=== PATIENT | female | born 1940 | race Caucasian/White ===

== ENCOUNTER 2020-06-16 08:32 | Emergency (ER) | payer MEDICARE, SELFPAY ==
[2020-06-16 08:37] VITALS: BP 156/104; PULSE 85; TEMP 36.6; O2SAT 99
--- NOTE | 2020-06-16 08:51 | ED.GENADUL_ITS ---
Discharge Plan Disposition Patient Disposition: HOME Condition: Stable Discharge Details Chief Complaint: Laceration Clinical Impression: Laceration of thumb Primary Care Provider: Luigi Rodarte ED Provider: Zackery Bowman Home Meds and New Rx's Prescriptions: Continued melatonin 3 MG tablet 5 mg PO HS Qty: 2 RF: 0 ascorbic acid (vitamin C) [Vitamin C] 500 MG tablet 500 mg PO DAILY RF: 0 d-mannose (bulk) 1 GM powder 1 packet PO DAILY RF: 0 Discharge Instructions Instructions: Laceration (ED) Additional Instructions: Tetanus updated. X-ray and splint deferred today. Keep the area clean and dry, change antibiotic dressing daily. Please watch for new or worsening symptoms and return to the ER for any concerns. Sutures removed in approximately 10 days. Medical Decision Making 79-year-old female who is left-hand dominant presents with a right hand laceration. She is unsure of her tetanus status, looking at her records her previous was 2011, will update today. She declines any x-rays. She understands the risks of retained foreign body or potential bony involvement. She also does not want any local anesthetic, she prefer that the laceration be repaired just the way it is. Tetanus updated. Laceration repaired without difficulty, please see procedural note. Patient agreeable to a antibiotic dressing, declined splint. HPI General Mode of arrival: ambulatory . Date/Time Provider Initiated Documentation: 06/16/20 08:33 . Limitations to Documentation: no limitations . Information obtained by: patient . HPI Narrative: This is a 79-year-old female who is left-hand dominant, history of A. fib, reporting a laceration to her right thumb. She reached into her garbage and accidentally cut herself on a piece of glass. She saw the piece of glass, it was clean, she does not believe there is a foreign body. She denies any other injury. She denies numbness, tingling, weakness. She is unsure of her last tetanus shot. Reports the pain is mild in nature. Related Data Home Medications Medication Instructions Recorded Confirmed melatonin 5 mg PO HS #2 09/28/14 06/16/20 ascorbic acid (vitamin C) [Vitamin 500 mg PO DAILY 02/07/17 06/16/20 C] d-mannose (bulk) 1 packet PO DAILY 02/07/17 06/16/20 Allergies Allergy/AdvReac Type Severity Reaction Status Date / Time No Known Allergies Allergy Unverified 06/16/20 08:40 General Stated Complaint: Laceration [place]: 4 Review of Systems Constitutional Constitutional: Denies weakness Musculoskeletal Musculoskeletal: Denies numbness and Denies tingling Integumentary/Breasts Skin/Breast: Denies erythema Neurologic Neurologic: Denies numbness, Denies tingling and Denies weakness [facility] Social History Smoking/Tobacco Use Status: Never Alcohol Intake: current Alcohol Intake frequency: holidays/special occasions only Drug use: Never Substance use type: does not use Do you feel safe at home: Yes Do you feel safe in your relationship?: Yes Exam Const General: cooperative, healthy appearing, comfortable and no acute distress Orientation: alert and awake HENMT Head: normal to inspection, normocephalic and atraumatic Mouth: moist mucous membranes Eyes Conjunctivae: conjunctivae normal Neck Neck: normal visual inspection, trachea midline and supple Resp Effort & Inspection: normal respiratory effort and able to speak in complete sentences Cardio Rate: regular rate Rhythm: regular rhythm Skin General skin exam: no rashes or lesions noted Neuro General: patient alert, patient awake, moves all extremities and no focal motor deficits Sensory Exam: no sensory deficits noted Extrem Hand/finger images: 1. 2 cm laceration. No obvious foreign body. Neuro, vascular, tendon intact. Was able to explore the wound, deep structures appear to be intact. No active bleeding. Full range of motion. Psych Appearance: grossly normal Mental Status: mental status grossly normal Course Vital Signs Vital signs: Vital Signs Temperature 36.6 C 06/16/20 08:37 Pulse 85 06/16/20 08:37 Blood Pressure 156/104 H 06/16/20 08:37 Pulse Oximetry 99 06/16/20 08:37 Temperature 36.6 C 06/16/20 08:37 Temperature Source Temporal Artery Scan 06/16/20 08:37 Pulse 85 06/16/20 08:37 Respiratory Effort Non-Labored 06/16/20 08:41 Blood Pressure 156/104 H 06/16/20 08:37 Blood Pressure Position Sitting 06/16/20 08:37 Pulse Oximetry 99 06/16/20 08:37 Oxygen Delivery Method Room Air 06/16/20 08:37 Oxygen Flow Rate 0 06/16/20 08:37 Pain Level 3 06/16/20 08:37 Procedures Laceration Laceration 1: Site: hand (Thumb) Side (If applicable): right Description: linear Depth: simple, single layer Local Anesthetic: other anesthetic (Patient deferred) Pre-repair: wound explored, irrigated extensively and deep structures intact Skin layer closed with: nylon Size (cm): 4-0 Number of sutures: 4
[2020-06-16 09:20] VITALS: BP 156/104; PULSE 85; TEMP 36.6; O2SAT 99
== END 2020-06-16 09:28 | disposition home or self-care (01) ==
PROVIDERS: Emergency Provider Physician Assistant; PCP Specialist/Technologist Athletic Trainer
DX: S61.011A Laceration without foreign body of right thumb without damage to nail, initial encounter (principal); W25.XXXA Contact with sharp glass, initial encounter
CPT/HCPCS: 12001; 90471

== ENCOUNTER 2020-06-25 10:49 | Emergency (ER) | payer MEDICARE, SELFPAY ==
[2020-06-25 11:16] VITALS: BP 128/104; PULSE 129; RESP 18; TEMP 37.1; O2SAT 97
--- NOTE | 2020-06-25 11:20 | ED.GENADUL_ITS ---
Discharge Plan Disposition Patient Disposition: HOME Condition: Improving Discharge Details Chief Complaint: SutureRem Clinical Impression: Visit for suture removal Primary Care Provider: Luigi Rodarte ED Provider: Tian Rosas Home Meds and New Rx's Prescriptions: Continued melatonin 3 MG tablet 5 mg PO HS Qty: 2 RF: 0 ascorbic acid (vitamin C) [Vitamin C] 500 MG tablet 500 mg PO DAILY RF: 0 d-mannose (bulk) 1 GM powder 1 packet PO DAILY RF: 0 Discharge Instructions Additional Instructions: Resume normal routine and activities. Return for any acute concerns. Medical Decision Making 79-year-old female presents for uneventful suture removal. 4 sutures removed from left thumb and dressing placed. Appropriate for discharge to home. HPI General Mode of arrival: ambulatory . Date/Time Provider Initiated Documentation: 06/25/20 11:04 . Limitations to Documentation: no limitations . Information obtained by: patient . History of Present Illness 79 year old F presents to the emergency department with the chief complaint of Uneventful suture removal, Related Data Home Medications Medication Instructions Recorded Confirmed melatonin 5 mg PO HS #2 09/28/14 06/25/20 ascorbic acid (vitamin C) [Vitamin 500 mg PO DAILY 02/07/17 06/25/20 C] d-mannose (bulk) 1 packet PO DAILY 02/07/17 06/25/20 Allergies Allergy/AdvReac Type Severity Reaction Status Date / Time No Known Allergies Allergy Unverified 06/25/20 11:18 General Stated Complaint: SutureRem [place]: 5 Review of Systems Narrative: No fever or discharge PFSH Social History Smoking/Tobacco Use Status: Never Alcohol Intake: current Alcohol Intake frequency: holidays/special occasions only Drug use: Never Substance use type: does not use Do you feel safe at home: Yes Do you feel safe in your relationship?: Yes Exam Narrative Exam Narrative: Patient is awake alert and oriented x3 in no acute distress. Her exam is unrevealing and she is in no acute distress [address] and healing right thumb laceration Course Vital Signs Vital signs: Vital Signs Temperature 37.1 C 06/25/20 11:16 Pulse 129 H 06/25/20 11:16 Respiratory Rate 18 06/25/20 11:16 Blood Pressure 128/104 H 06/25/20 11:16 Pulse Oximetry 97 06/25/20 11:16 Temperature 37.1 C 06/25/20 11:16 Temperature Source Skin 06/25/20 11:16 Pulse 129 H 06/25/20 11:16 Respiratory Rate 18 06/25/20 11:16 Respiratory Effort Non-Labored 06/25/20 11:16 Blood Pressure 128/104 H 06/25/20 11:16 Pulse Oximetry 97 06/25/20 11:16 Oxygen Delivery Method Room Air 06/25/20 11:16 Oxygen Flow Rate 0 06/25/20 11:16
== END 2020-06-25 11:24 | disposition home or self-care (01) ==
PROVIDERS: Emergency Provider Emergency Medicine; PCP Specialist/Technologist Athletic Trainer
DX: S61.011D Laceration without foreign body of right thumb without damage to nail, subsequent encounter (principal); W25.XXXD Contact with sharp glass, subsequent encounter; Z48.02 Encounter for removal of sutures

== ENCOUNTER 2021-06-25 01:48 | Outpatient (CLI) | payer MEDICARE, SELFPAY ==
--- NOTE | 2021-06-25 06:30 | DI.MAMMO_ITS ---
Exam(s) MAMMO SCREENING EXAM: MAMMO SCREENING CLINICAL HISTORY: screening,z12.39. TECHNIQUE: Bilateral full field digital CC and MLO mammographic images were obtained with 3D tomosyn thesis and utilizing computer aided detection (CAD). COMPARISON: Prior mammograms dating back to 2010, the most recent being July 2014. FINDINGS: Asymmetric density noted anteriorly in the left breast is unchanged from prior studies. In the right breast on CC view there is an asymmetric density-possible nodule slightly medial of cent er, approximately 3.5 cm in from the nipple and measuring approximately 12 by 11 millimeters.. Spot compression view recommended. Also possible ultrasound.. There are no malignant-appearing microcalcification groups in this region nor elsewhere in either larisa ast. There is no significant architectural distortion nor skin thickening-retraction. IMPRESSION: 1. No radiographic evidence of malignancy in left breast. 2. Right breast asymmetric density-possible nodule. Spot compression view and ultrasound recommended . BI-RADS Category 0 - Assessment Incomplete: Need additional imaging evaluation Breast Density - Category C - Heterogeneously dense Breast density Category C or D implies that the patient has dense breast tissue. Dense breast tissue can make it harder to find cancer on a mammogram. Dense breast tissue is also associated with an incr eased risk of breast cancer. This information about the result of the mammogram report was provided to the patient to raise their awareness. Use this report when you speak with the patient about their risks for breast cancer, which includes their family history. At that time, you may recommend additional screening tests (Ultrasoun d or MRI) as these tests may add significant information. A negative radiographic report should not delay biopsy if a dominant or clinically suspicious mass is present. Up to ten percent of cancers are not identified on mammography. A negative report may reinforce clinical impression. Adenosis and dense breasts may obscure an underlying neoplasm. False positive reports average 6 to 10%. Patient will receive a letter notifying them of these results.
== END 2021-06-25 02:08 ==
PROVIDERS: PCP Specialist/Technologist Athletic Trainer; Visit Provider Nurse Practitioner Family
DX: Z12.31 Encounter for screening mammogram for malignant neoplasm of breast (principal); R92.8 Other abnormal and inconclusive findings on diagnostic imaging of breast
CPT/HCPCS: 77063; 77067

== ENCOUNTER 2021-07-13 04:40 | Outpatient (CLI) | payer MEDICARE, SELFPAY ==
--- NOTE | 2021-07-13 | DI.US_ITS ---
Exam(s) US BREAST RT LIMITED EXAM: US BREAST RT LIMITED CLINICAL HISTORY: F/U MAMMO, ASYMMETRIC DENSITY RT, ? NODULE TECHNIQUE: Ultrasound performed using standard protocol. COMPARISON: US Cardiac from 02/10/2017 FINDINGS: Today's ultrasound examination of the breasts was obtained to evaluate questionable nodular radiodens ity seen in medial aspect of the right breast on recent mammogram. The patient refused spot compress ion views of the right breast. Breast ultrasound shows no evidence of a mass or cyst in the medial aspect of the breast from the 12 o'clock to the 6 o'clock position. IMPRESSION: Negative breast ultrasound. Spot compression views of the right breast recommended for further evalu ation. Please note that the patient refused spot compression views today. BI-RADS Cat 0 - Assessment Incomplete: Need additional imaging evaluation DATA REPOSITORY:
== END 2021-07-13 05:00 ==
PROVIDERS: PCP Specialist/Technologist Athletic Trainer; Visit Provider Nurse Practitioner Family
DX: R92.8 Other abnormal and inconclusive findings on diagnostic imaging of breast (principal)
CPT/HCPCS: 76642

== ENCOUNTER 2022-05-27 17:36 | Outpatient (REF) | payer MEDICARE, SELFPAY ==
[2022-05-27 14:29] LABS: Absolute Basophil Count 0.05 10^3/uL (0.0-0.2); Absolute Eosinophil Count 0.05 10^3/uL (0.0-0.7); Absolute Lymphocyte Count 2.31 10^3/uL (1.2-3.4); Absolute Monocyte Count 0.45 10^3/uL (0.1-0.8); Absolute Neutrophil Count 3.07 10^3/uL (1.2-6.7); Basophils % 0.8; Eosinophils % 0.8; HCT 44.5 % (36.0-46.0); HGB 14.5 g/dL (11.2-15.7); MCH 30.9 pg (27.0-33.0); MCHC 32.6 % (32.0-36.0); MCV 95 fL (80-95); MPV 11.7 fL (8.0-11.0); Monocytes % 7.6; Neutrophils % 51.8; Platelet Count 182 10^3/uL (130-400); WBC 5.93 10^3/uL (4.4-10.8)
[2022-05-27 14:48] LABS: ALT 22 U/L (14-59); AST 28 U/L (15-37); Albumin 3.9 g/dL (3.4-5.0); Alkaline Phosphatase 59 U/L (46-116); Anion Gap 5.9 mmol/L (3-11); BUN 26 mg/dL (7-18); CO2 31.1 mmol/L (21.0-32.0); CREATININE 1.3 mg/dL (0.55-1.02); Calcium 9.1 mg/dL (8.5-10.1); Chloride 102 mmol/L (98-107); Estimated GFR 39.41 (mL/min/1.73m2); Glucose 105 mg/dL (74-106); Potassium 4.1 mmol/L (3.5-5.1); Sodium 139 mmol/L (136-145); Total Protein 7.4 g/dL (6.4-8.2)
== END 2022-05-27 17:37 | disposition home or self-care (01) ==
LOC: NCHCN 17:36
PROVIDERS: PCP Specialist/Technologist Athletic Trainer; Visit Provider Nurse Practitioner Family
DX: E78.5 Hyperlipidemia, unspecified (principal); I48.91 Unspecified atrial fibrillation; R26.0 Ataxic gait; M62.81 Muscle weakness (generalized)
CPT/HCPCS: 80053; 85025

== ENCOUNTER 2023-04-14 16:26 | Outpatient (CLI) | payer MEDICARE, SELFPAY ==
--- NOTE | 2023-04-14 | DI.US_ITS ---
APPROVED REPORT EXAM: Comprehensive 2D, Doppler, and color-flow Echocardiogram Patient Location: Out-Patient [place] Department Supervisor: Shannon Harmon RDCS (AE) Indications: A Fib Other Information Study Quality: Adequate Conclusion Normal left ventricular wall thickness and chamber size. Ejection fraction is 55%. Wall motion is n ormal Normal right ventricular size and systolic function Both atria are moderately dilated Aortic valve is trileaflet with mild regurgitation Thickened mitral leaflets, moderate mitral regurgitation Normal tricuspid valve, moderate regurgitation Estimated right ventricular systolic pressure is 22 mmHg Mildly dilated ascending aorta Wall motion Left Ventricle The left ventricle is normal size. The left ventricular systolic function is normal. The left ventric ular ejection fraction is within the normal range. There is normal left ventricular wall thickness. T here is normal LV segmental wall motion. There is no ventricular septal defect visualized. LVEF is 55 %. Right Ventricle The right ventricle is normal size. The right ventricular systolic function is normal. The RVSP is 22 .0 mmHg. Atria Left atrium is moderately dilated. Right atrium is moderately dilated. The interatrial septum is inta ct with no evidence for an atrial septal defect. Aortic Valve The aortic valve is normal in structure. Aortic valve is trileaflet. There is no aortic valvular sten osis. Mild aortic regurgitation. Mitral Valve Thickened mitral leaflets No evidence of mitral valve stenosis. Moderate mitral regurgitation. Tricuspid Valve The tricuspid valve is normal in structure. There is no tricuspid valve stenosis. Moderate tricuspid regurgitation. Pulmonic Valve The pulmonary valve is normal in structure. There is no pulmonic valvular stenosis. Trace pulmonic re gurgitation. Great Vessels The aortic root is normal in size. The ascending aorta is mildly dilated. Aortic arch is normal in ca liber. IVC is normal in size and collapses >50% with inspiration. Pericardium There is no pericardial effusion. 2D Dimensions IVSD d PLAX 0.95 cm F: 0.6-1.0 LV Vol A2C d MOD 68.3 mL LVPW d PLAX 0.93 cm F: 0.6 - 1.0 LV Vol A4C d MOD 56.5 mL LVID d PLAX 4.43 cm F: 3.8 - 5.2 LA vol/ BSA A2C s A-L 42.0 mL/m2 LVDs 3.15 cm F: 2.2 - 3.5 LA vol/ BSA A4C s A-L 36.2 mL/m2 Ao Root d 3.18 cm F: 2.7 - 3.3 LA Vol/ BSA Biplane s A-L 39.3 mL/m2 RA Area A4C 18.20 cm2 LA Area A4C s MOD 21.93 cm2 RA Vol/ BSA A4C s A-L 30.1 mL/m2 LA Area A2C s MOD 23.45 cm2 Ao Asc Diam d 3.57 cm F: 2.3 - 3.1 LV EF A4C MOD 55.2 % LV EF Teichholz 54.7 % LV EF A2C MOD 55.3 % LVEF (Jay's) 50.54 % F: 54 - 74 LV EF Biplane MOD 50.5 % LV Volume 48.40 mL F: 46 - 106 SV 31.69 mL LV Volume Index 26.30 mL/m2 F: 29 - 61 SV Index 17.24 mL/m2 LV Vol Biplane MOD 62.7 mL FS 28.20 % M-Mode TAPSE 1.76 cm (M/F) >1.7 LV Diastology MV E Vmax 0.96 (0.4-1.3 m/s) Aortic Valve LVOT Area 3.40 cm2 AoV Area Vmax 2.73 cm2 LVOT Vmax 0.71 m/s AoV Area/ BSA (Vmax) 1.48 cm2/m2 LVOT Mean Fausto. 0.51 m/s RACHEL Mean Fausto. 2.83 cm2 LVOT Peak Grad 2.0 mmHg RACHEL Mean Fausto. Index 1.54 cm2/m2 LVOT Mean Grad 1.1 mmHg LVOT VTI 0.115 m LVOT Diam s 2.05 cm AoV Vmax 0.89 m/s Velocity Ratio 0.80 AoV Mean Fausto. 0.61 m/s AoV Peak Grad 3.1 mmHg LVOT SV 39.08 mL AoV Mean Grad 1.7 mmHg AoV VTI 0.111 m AoV Area VTI 3.53 cm2 AoV Area/ BSA (VTI) 1.92 cm/m2 Mitral Valve MV DT 191 (160-240 msec) MR Vmax 4.71 m/s MV PHT 56 msec MR VTI 1.261 m MV Area PHT 3.96 cm2 MR Peak Grad 88.7 mmHg MR Mean Grad 60.3 mmHg Pulmonary Valve PV Vmax 0.65 (0.5-1.5 m/s) RVOT Peak Gr. 0.68 mmHg PV Peak Grad 1.7 mmHg RVOT Mean Gr. 0.40 mmHg PV Mean Grad 0.9 mmHg RVOT VTI 0.072 m PV VTI 0.083 m RVOT Vmax 0.41 m/s Tricuspid Valve TR Peak Grad 19.0 mmHg TR Vmax 2.18 m/s RA Pressure 3.00 mmHg RVSP (TR) 22.0 mmHg
== END 2023-04-14 16:46 ==
PROVIDERS: PCP Nurse Practitioner Family; Visit Provider Nurse Practitioner Family
DX: I48.91 Unspecified atrial fibrillation (principal)
CPT/HCPCS: 93306

== ENCOUNTER 2023-04-29 13:20 | Outpatient (CLI) | payer MEDICARE, SELFPAY ==
--- NOTE | 2023-04-29 13:15 | RT.EKG_ITS ---
APPROVED REPORT Exam: Resting ECG Reason for Exam: cardiac evaluation Patient Location: O HR:129 bpm ECG Measurements Heart Rate 129 AXIS VT [id number] P [id number] QRSd 80 QRS 49 QT 306 T -10 QTc 449 Conclusion Atrial fibrillation...V-rate 110-158, irreg A-activity Borderline low voltage, extremity leads...all extremity leads <0.6mV Baseline wander in lead(s) II,III,aVF
== END 2023-04-29 13:21 | disposition home or self-care (01) ==
LOC: DI.CARD 13:25
PROVIDERS: PCP Nurse Practitioner Family; Referring Provider Nurse Practitioner Family; Visit Provider Internal Medicine Cardiovascular Disease
DX: I48.91 Unspecified atrial fibrillation (principal); Z13.6 Encounter for screening for cardiovascular disorders
CPT/HCPCS: 93010

== ENCOUNTER → 2023-04-29 13:20 | Outpatient (BNVA) | payer MEDICARE, SELFPAY | PROVIDERS: PCP Nurse Practitioner Family; Referring Provider Nurse Practitioner Family; Visit Provider Internal Medicine Cardiovascular Disease | DX: I48.21 Permanent atrial fibrillation (principal) | CPT/HCPCS: 93005; 99203; 99214 ==

== ENCOUNTER 2023-05-05 03:16 | Outpatient (CLI) | payer MEDICARE, SELFPAY ==
[2023-05-05 11:47] LABS: Abs Immature Grans 0.01 10^3/uL (0.0-0.06); Absolute Basophil Count 0.05 10^3/uL (0.0-0.2); Absolute Eosinophil Count 0.05 10^3/uL (0.0-0.7); Absolute Lymphocyte Count 2.91 10^3/uL (1.2-3.4); Absolute Monocyte Count 0.51 10^3/uL (0.1-0.8); Basophils % 0.7; Eosinophils % 0.7; HCT 44.9 % (36.0-46.0); HGB 14.9 g/dL (11.2-15.7); Immature Grans % 0.1; Lymphocytes % 40.8; MCH 31.5 pg (27.0-33.0); MCHC 33.2 % (32.0-36.0); MCV 95 fL (80-95); MPV 10.9 fL (8.0-11.0); Monocytes % 7.2; Neutrophils % 50.5; Platelet Count 171 10^3/uL (130-400); RBC 4.73 10^6/uL (3.93-5.22); RDW 13.1 % (11.7-14.6); RDW-SD 45.8 fL; WBC 7.13 10^3/uL (4.4-10.8)
[2023-05-05 12:17] LABS: Hemoglobin A1C 5.6 % (<5.7)
[2023-05-05 14:02] LABS: ALT 20 U/L (14-59); AST 26 U/L (15-37); Albumin 3.9 g/dL (3.4-5.0); Alkaline Phosphatase 84 U/L (46-116); Anion Gap 7.5 mmol/L (3-11); BUN 21 mg/dL (7-18); Bilirubin, Total 0.8 mg/dL (0.2-1.0); CO2 30.5 mmol/L (21.0-32.0); CREATININE 1.2 mg/dL (0.55-1.02); Calcium 9.4 mg/dL (8.5-10.1); Chloride 103 mmol/L (98-107); Estimated GFR 45.48 (mL/min/1.73m2); Glucose 99 mg/dL (74-106); Potassium 4.3 mmol/L (3.5-5.1); Sodium 141 mmol/L (136-145); Total Protein 7.6 g/dL (6.4-8.2)
== END 2023-05-05 03:17 | disposition home or self-care (01) ==
LOC: LBO 03:17
PROVIDERS: PCP Nurse Practitioner Family; Visit Provider Nurse Practitioner Family
DX: M62.81 Muscle weakness (generalized) (principal); I48.91 Unspecified atrial fibrillation
CPT/HCPCS: 36415; 80053; 83036; 85025

== ENCOUNTER 2023-05-29 12:23 | Outpatient (CLI) | payer MEDICARE, SELFPAY ==
--- NOTE | 2023-05-29 12:45 | RT.EKG_ITS ---
APPROVED REPORT Exam: Resting ECG Reason for Exam: Tachycardia Patient Location: O HR:131 bpm ECG Measurements Heart Rate 131 AXIS DE [id number] P [id number] QRSd 80 QRS 59 QT 311 T -44 QTc 460 Conclusion Atrial fibrillation...V-rate 89-161, irreg A-activity Low voltage, extremity leads...all extremity leads <0.5mV Baseline wander in lead(s) III,aVF
== END 2023-05-29 12:24 | disposition home or self-care (01) ==
LOC: DI.CARD 12:53
PROVIDERS: PCP Nurse Practitioner Family; Referring Provider Nurse Practitioner Family; Visit Provider Internal Medicine Cardiovascular Disease
DX: I48.91 Unspecified atrial fibrillation (principal); R00.0 Tachycardia, unspecified
CPT/HCPCS: 93010

== ENCOUNTER → 2023-05-29 12:23 | Outpatient (BNVA) | payer MEDICARE, SELFPAY | PROVIDERS: PCP Nurse Practitioner Family; Referring Provider Nurse Practitioner Family; Visit Provider Internal Medicine Cardiovascular Disease | DX: I48.91 Unspecified atrial fibrillation (principal) | CPT/HCPCS: 93005; 99211; 99213 ==

== ENCOUNTER 2023-06-28 12:37 | Outpatient (REF) | payer MEDICARE, SELFPAY ==
[2023-06-28 16:57] LABS: Abs Immature Grans 0.01 10^3/uL (0.0-0.06); Absolute Basophil Count 0.04 10^3/uL (0.0-0.2); Absolute Eosinophil Count 0.04 10^3/uL (0.0-0.7); Absolute Lymphocyte Count 2.41 10^3/uL (1.2-3.4); Absolute Monocyte Count 0.47 10^3/uL (0.1-0.8); Absolute Neutrophil Count 4.13 10^3/uL (1.2-6.7); Basophils % 0.6; Eosinophils % 0.6; HGB 15.2 g/dL (11.2-15.7); Immature Grans % 0.1; Lymphocytes % 33.9; MCH 30.7 pg (27.0-33.0); MCHC 32.3 % (32.0-36.0); MCV 95 fL (80-95); MPV 11.8 fL (8.0-11.0); Monocytes % 6.6; Neutrophils % 58.2; Platelet Count 197 10^3/uL (130-400); RBC 4.95 10^6/uL (3.93-5.22); RDW 13.6 % (11.7-14.6); RDW-SD 47.9 fL
[2023-06-28 17:08] LABS: ALT 16 U/L (14-59); AST 24 U/L (15-37); Albumin 4.2 g/dL (3.4-5.0); Alkaline Phosphatase 84 U/L (46-116); BUN 23 mg/dL (7-18); Bilirubin, Total 0.8 mg/dL (0.2-1.0); CREATININE 1.2 mg/dL (0.55-1.02); Calcium 9.7 mg/dL (8.5-10.1); Chloride 104 mmol/L (98-107); Estimated GFR 45.48 (mL/min/1.73m2); Glucose 102 mg/dL (74-106); Potassium 4.5 mmol/L (3.5-5.1); Sodium 143 mmol/L (136-145); Total Protein 7.5 g/dL (6.4-8.2)
[2023-06-30 11:47] LABS: Lyme Ab w Rflx to Lyme Confirm Negative (Negative)
[2023-07-01 14:55] LABS: Anaplasma phagocytophilum Negative (Negative); B. miyamotoi PCR Negative (Negative); Babesia divergens/MO-1 Negative (Negative); Babesia duncani Negative (Negative); Babesia microti Negative (Negative); Ehrlichia chaffeensis Negative (Negative); Ehrlichia ewingii/canis Negative (Negative); Ehrlichia muris eauclairensis Negative (Negative)
== END 2023-06-28 12:38 | disposition home or self-care (01) ==
LOC: LBN 12:37
PROVIDERS: PCP Nurse Practitioner Family; Visit Provider Physician Assistant Medical
DX: T14.8XXA Other injury of unspecified body region, initial encounter (principal); W57.XXXA Bitten or stung by nonvenomous insect and other nonvenomous arthropods, initial encounter
CPT/HCPCS: 80053; 87798; 85025; 86618

== ENCOUNTER 2023-07-10 14:39 | Outpatient (REF) | payer MEDICARE, SELFPAY ==
[2023-07-10 16:49] LABS: FREE T4 1.07 ng/dL (0.76-1.46); TSH 1.48 uIU/mL (0.36-3.74)
== END 2023-07-10 14:40 | disposition home or self-care (01) ==
LOC: NCHCN 14:39
PROVIDERS: PCP Nurse Practitioner Family; Visit Provider Nurse Practitioner Family
DX: I48.91 Unspecified atrial fibrillation (principal)
CPT/HCPCS: 84439; 84443

== ENCOUNTER 2023-09-09 16:16 | Outpatient (REF) | payer MEDICARE, SELFPAY | END 2023-09-09 16:17 | disposition home or self-care (01) | LOC: LBN 16:16 | PROVIDERS: PCP Nurse Practitioner Family; Visit Provider Nurse Practitioner Family | DX: N30.01 Acute cystitis with hematuria (principal); R82.89 Other abnormal findings on cytological and histological examination of urine | CPT/HCPCS: 87077; 87086; 87186 ==

== ENCOUNTER 2023-09-26 11:01 | Outpatient (CLI) | payer MEDICARE, SELFPAY ==
--- NOTE | 2023-09-26 12:44 | W.CARDEVENT ---
Date of service: 09/26/23 Time of Service: 12:44 Cardiac Event Recorder Referring Provider:: Opal Bray Indications:: Atrial fibrillation Cardiac Event Note: This is a cardiac event monitor ordered for atrial fibrillation. The patient was monitored for 13 days and 15 hours Atrial fibrillation was present throughout the recording with an average heart rate of 98. Minimum was 32, maximum 199 There were rare ventricular ectopic beats. There were two runs of nonsustained ventricular tachycardia , each 5 beats in duration There were no pauses greater than 3 seconds. symptoms were reported which corresponded to atrial fibrillation in the 80s
== END 2023-09-26 11:02 | disposition home or self-care (01) ==
LOC: CARDOPNVT 11:01
PROVIDERS: PCP Nurse Practitioner Family; Visit Provider Internal Medicine Cardiovascular Disease
DX: I48.91 Unspecified atrial fibrillation (principal); I47.20 Ventricular tachycardia, unspecified
CPT/HCPCS: 93246; 93248

== ENCOUNTER 2024-01-01 09:18 | Outpatient (REF) | payer MEDICARE, SELFPAY ==
[2024-01-01 21:47] LABS: Bacteria Many HPF (Negative); C & S Indicated? C&S Done As Ordered; WBC >50 HPF (0-5)
== END 2024-01-01 09:19 | disposition home or self-care (01) ==
LOC: LBN 09:18
PROVIDERS: PCP Nurse Practitioner Family; Visit Provider Physician Assistant Medical
DX: R30.0 Dysuria (principal)
CPT/HCPCS: 87077; 81015; 87086; 87186

== ENCOUNTER 2024-01-17 16:41 | Outpatient (REF) | payer MEDICARE, SELFPAY | END 2024-01-17 16:42 | disposition home or self-care (01) | LOC: LBN 16:41 | PROVIDERS: PCP Nurse Practitioner Family; Visit Provider Nurse Practitioner Family | DX: R30.0 Dysuria (principal) | CPT/HCPCS: 87086 ==

== ENCOUNTER 2024-02-13 19:15 | Outpatient (REF) | payer MEDICARE, SELFPAY ==
[2024-02-13 21:09] LABS: WBC >50 HPF (0-5)
[2024-02-13 21:10] LABS: Bacteria Few HPF (Negative); C & S Indicated? C&S Done As Ordered; Casts Negative LPF (Negative); Crystals Negative HPF (Negative); Epithelial Cells Few HPF (Negative); Mucus Negative (Negative)
== END 2024-02-13 19:16 | disposition home or self-care (01) ==
LOC: LBN 19:15
PROVIDERS: PCP Nurse Practitioner Family; Visit Provider Physician Assistant Medical
DX: R30.0 Dysuria (principal)
CPT/HCPCS: 87077; 81015; 87086; 87186

== ENCOUNTER 2024-03-11 21:22 | Outpatient (REF) | payer MEDICARE, SELFPAY ==
[2024-03-11 21:55] LABS: Bacteria Negative HPF (Negative); Epithelial Cells Rare HPF (Negative); Other Cells Rare Transitional (Negative); RBC >50 HPF (0-2); WBC >50 HPF (0-5)
[2024-03-11 21:56] LABS: C & S Indicated? C&S Done As Ordered; Crystals Other HPF (Negative); Mucus Trace (Negative)
== END 2024-03-11 21:23 | disposition home or self-care (01) ==
LOC: LBN 21:22
PROVIDERS: PCP Nurse Practitioner Family; Visit Provider Physician Assistant Medical
DX: R30.0 Dysuria (principal); R82.89 Other abnormal findings on cytological and histological examination of urine; B96.29 Other Escherichia coli [E. coli] as the cause of diseases classified elsewhere
CPT/HCPCS: 87077; 81015; 87086; 87186

== ENCOUNTER → 2024-04-01 10:16 | Outpatient (BNVA) | payer MEDICARE, SELFPAY | PROVIDERS: PCP Nurse Practitioner Family; Referring Provider Nurse Practitioner Family; Visit Provider Podiatrist | DX: B35.1 Tinea unguium (principal); L60.3 Nail dystrophy; M20.42 Other hammer toe(s) (acquired), left foot; M20.41 Other hammer toe(s) (acquired), right foot | CPT/HCPCS: 99213 ==

== ENCOUNTER 2024-06-15 21:42 | Outpatient (REF) | payer MEDICARE, SELFPAY ==
--- OUTSIDE RECORDS SUMMARY | 2024-06-15 21:45 | XMS_ITS | Encounter Summary ---
Author Organization [facility] Address [address] [place] [address] Care Team Providers Care Bleach Mixer Name Role Phone None, Provider Primary Care Provider Unavailabl e Encounter Details Date Type Department Care Team (Late st Contact Info) Description 06/24/2014 Results Only [facility] - [facility] ([facility]) [address], [place] [id number] Jenni Saldivar, [facility] [address] [place] [id number] Social History Tobacco Use Types Packs/Day Years Used Date Smoking Tobacco: Never Assessed Sex and Gender Information Value Date Recorded Sex Assigned at Not on file Gender Identity Not on file Sexual Orientation Not on file documented as of this encounter Plan of Treatment Not on file documented as of this encounter Procedures Procedure Name Priority Date/Time Associated Diagnosis Comments ORGANISM IDENTIFICATION AND SUSCEPTIBILITY Routine 06/20/2014 16:15 EDT documented in this encounter Results * ORGANISM IDENTIFICATION AND SUSCEPTIBILITY (06/20/2014 16:15 EDT) Specimen Description Urine [facility] Result ESCHERICHIA COLI [facility] Report Status 06/27/2014 Final [facility] ORGANISM ESCHERICHIA COLI [facility] URINE / Unknown 06/20/2014 1 6:15 EDT 06/24/2014 17:10 EDT Narrative Organism Antibiotic Method Susceptibility Escherichia coli Ampicillin SUSCEPTIBILITY (VIANEY) <=4 Susceptible Escherichia coli Gentamicin SUSCEPTIBILITY (VIANEY) <=2 Susceptible Escherichia coli Trimethoprim-Sulfame thox azole SUSCEPTIBILITY (VIANEY) 1 Susceptible Escherichia coli Nitrofurantoin SUSCEPTIBILITY (VIANEY) <=16 Susceptible Escherichia coli Tobramycin SUSCEPTIBILITY (VIANEY) <=4 Susceptible Escherichia coli Amikacin SUSCEPTIBILITY (VIANEY) <=8 Susceptible Escherichia coli Ceftriaxone SUSCEPTIBILITY (VIANEY) 2 Intermediate Escherichia coli Ciprofloxacin SUSCEPTIBILITY (VIANYE) 1 Susceptible Escherichia coli Piperacillin Tazobactam SUSCEPTIBILIT Y (VIANEY) <=16 Susceptible Escherichia coli Meropenem SUSCEPTIBILITY (VIANEY) <=1 Susceptible Comment:ESCHERICHIA COLI Jenni Saldivar [facility] MICROBIOLOGY - GENER AL ORDERABLES [facility] [address] [phone] documented in this encounter Visit Diagnoses Not on filedocumented in this encounter Care Teams Bleach Mixer Relationship Specialty Start Date End Date None, Provider PCP - General 12/27/13 documented as of this encounter
--- OUTSIDE RECORDS SUMMARY | 2024-06-15 21:45 | XMS_ITS | Referral Summary ---
Author Organization [facility] Address [address] [place] [id number] Care Team Providers Care Brick Offbearer Name Role Phone None, Provider Primary Care Provider Unavailabl e Social History Tobacco Use Types Packs/Day Years Used Date Smoking Tobacco: Never Assessed Sex and Gender Information Value Date Recorded Sex Assigned at Not on file Gender Identity Not on file Sexual Orientation Not on file Plan of Treatment Not on file Care Teams Brick Offbearer Relationship Specialty Start Date End Date None, Provider PCP - General 12/27/13
--- OUTSIDE RECORDS SUMMARY | 2024-06-15 21:45 | XMS_ITS | Encounter Summary ---
Author Organization [facility] Address [address] [place] [address] Care Team Providers Care Quality Control Engineering Technician Name Role Phone None, Provider Primary Care Provider Unavailabl e Encounter Details Date Type Department Care Team (Late st Contact Info) Description 06/29/2023 Lab Requisition [facility] Pathology & Laboratory Medicine - [address] [id number] Outr Resulting Lab, Provider Social History Tobacco Use Types Packs/Day Years Used Date Smoking Tobacco: Never Assessed Sex and Gender Information Value Date Recorded Sex Assigned at Not on file Gender Identity Not on file Sexual Orientation Not on file documented as of this encounter Plan of Treatment Not on file documented as of this encounter Procedures Procedure Name Priority Date/Time Associated Diagnosis Comments LYME AB Routine 06/28/2023 12:29 EDT documented in this encounter Results * LYME AB (06/28/2023 12:29 EDT) Lyme Ab Negative Negative 06/30/2023 11:42 EDT [facility] Blood VENOUS BLOOD / Unknown 06/28/2023 12:29 EDT 06/29/2023 17:07 EDT Provider Outr Resulting Lab IMMUNOLOGY A ND SEROLOGY ORDERABLES [facility] [address] [place] [address] documented in this encounter Visit Diagnoses Not on filedocumented in this encounter Care Teams Quality Control Engineering Technician Relationship Specialty Start Date End Date None, Provider PCP - General 12/27/13 documented as of this encounter
--- OUTSIDE RECORDS SUMMARY | 2024-06-15 21:45 | XMS_ITS ---
Author Organization Unknown Address [address] [place] [phone] Phone Care Team Providers Care Insurance Collector Name Role Phone LYLE Funes Attending Unavailable ANABELL Day Primary Unavailable Social History Type Status Start Date End Date Code Code Syst em Sex Female Hospital Discharge Instructions Should you have any questions prior to discharge, please contact a member of your healthcare team. If you have left the hospital and have any questions, please contact your primary care physician. Reason For Referral No Data Found Plan of Treatment No Data Found Encounters Encounter Diagnosis Start Date Code Code Sys tem Atrial fibrillation 08/28/2023 [id number] SNOMED-C T Personal Care Team Section Performer Name Performer Role Active Date Inactive Da te
--- OUTSIDE RECORDS SUMMARY | 2024-06-15 21:45 | XMS_ITS | Clinical Summary ---
Author Organization [facility] Address [address] [place] [address] Care Team Providers Care Service Girl Name Role Phone None, Provider Primary Care Provider Unavailabl e Social History Tobacco Use Types Packs/Day Years Used Date Smoking Tobacco: Never Assessed Sex and Gender Information Value Date Recorded Sex Assigned at Not on file Gender Identity Not on file Sexual Orientation Not on file Plan of Treatment Health Maintenance Due Date Last Done Comments RSV Immunization ( o r 60+ Years) (1 - 1-dose 60+ series) 2001 Fall Risk Screening 2006 COVID-19 Vaccine (2022- season) 2023 Care Teams Service Girl Relationship Specialty Start Date End Date None, Provider PCP - General 12/27/13
--- OUTSIDE RECORDS SUMMARY | 2024-06-15 21:46 | XMS_ITS | Encounter Summary ---
Author Organization [facility] Address [facility] [place] [address] Care Team Providers Care Grape Cutter Name Role Phone Luigi Rodarte Primary Care Provider [phone] Reason for Visit * Reason Comments Follow-up Skin Check Encounter Details Date Type Department Care Team (Late st Contact Info) Description 03/12/2019 10:00 AM EDT Office Visit Dermatology at [address] [id number] Cisco Miranda MD [address] [place] [address], [facility] [place] [address] Epidermal cyst; History of basal cell carcinoma; Rosacea Social History Tobacco Use Types Packs/Day Years Used Date Smoking Tobacco: Former Cigarettes Smokeless Tobacco: Never Comments:former passive smok er in college Sex and Gender Information Value Date Recorded Sex Assigned at Not on file Gender Identity Not on file Sexual Orientation Not on file documented as of this encounter Progress Notes * Cisco Miranda MD - 03/12/2019 10:00 AM EDT Problem: New skin lesions of concern. Aleksandar follows up concerned about some spots on her neck and back, and about rosacea on her face. She states that the vitamin C cream I recommend did not help. She wonders what can be done to help with the redness and blotchiness. She has a lot of stress in her life right now does not want to have any surgical procedures done but wants reassurance today about the cysts. Physical examination reveals to follicular cysts, each about a centimeter in diameter, one on the upper central back and one on the nape of her neck. These are not inflamed. They appear entirely unremarkable. She has some patchy erythema but mild patchy rosacea of the face without papulopustular involvement. She has no inflammatory lesions. Assessment plan: Rosacea facial 1. Begin a trial of Azelaic acid 15% cream, apply to face on a twice daily basis dispense 50 g with3 refills. Patient given a [employer] discount coupon for Aretha for $111. She knows she can go online and get this herself when she needs refills. Follicular cyst neck and back 1. Patient reassured about benign nature of these 2. These are asymptomatic and patient does not desire the excision at this time CC: ESTEFANIA Zuniga documented in this encounter Plan of Treatment Not on file documented as of this encounter Visit Diagnoses Diagnosis Epidermal cyst Sebaceous cyst History of basal cell carcinoma Personal history of other malignant neoplasm of skin Rosacea documented in this encounter Care Teams Grape Cutter Relationship Specialty Start Date End Date Luigi Rodarte [place] [address] [place] [address] PCP - General General Internal Medicine 11/28/1705/14 documented as of this encounter
--- OUTSIDE RECORDS SUMMARY | 2024-06-15 21:46 | XMS_ITS | Encounter Summary ---
Author Organization [facility] [place] [address] Care Team Providers Care Brand Strategist Name Role Phone [place], Gerri Funes APRN Primary Care Provider [phone] Encounter Details Date Type Department Care Team (Late st Contact Info) Description 08/30/2013 Telephone [place] [phone] Penny Alicia RN Social History Tobacco Use Types Packs/Day Years Used Date Smoking Tobacco: Former Cigarettes Smokeless Tobacco: Never Comments:former passive smok er in college Sex and Gender Information Value Date Recorded Sex Assigned at Not on file Gender Identity Not on file Sexual Orientation Not on file documented as of this encounter Miscellaneous Notes * Telephone Encounter - Penny Alicia RN - 08/30/2013 3:06 PM EDT Fluoroscopy Procedure Request Procedure Requested: lumbar epidural steroid injection. Date(s) of Last Procedure: 11/13/[address] Fernandez Did requested procedure relieve pain? _ x__ Yes Patient taking anticoagulants? _x__ No Patient has pacemaker/defibrillator: No Changes in usual pain pattern or pertinent recent trauma or surgery? __x_ No, patient transferred or will be contacted by city marshal to make appointment for requested procedure. Patient's questions regarding requested procedure were answered and patient verbalized understanding. Patient knows how to contact the [facility] and understands that they may do so at any time should they have further questions or concerns. Penny Alicia RN documented in this encounter Plan of Treatment Not on file documented as of this encounter Visit Diagnoses Not on filedocumented in this encounter Care Teams Brand Strategist Relationship Specialty Start Date End Date Gerri Kinney APRN PCP - General 08/31/13 11/27/17 documented as of this encounter
--- OUTSIDE RECORDS SUMMARY | 2024-06-15 21:46 | XMS_ITS | Clinical Summary ---
Author Organization [facility] Address [facility] [place] [address] Care Team Providers Care Rope Silica Machine Operator Name Role Phone Opal Bray APRN Primary Care Provider [phone] Allergies No known active allergies Medications Medication Sig Dispensed Refills Start Date End Date Status MORINDA CITRIFOLIA FRUIT (ROLANDA ORAL) Take by mouth. rolanda juice- makes a juice and drinks it daily Active dilTIAZem CD (Cardizem CD) 180 mg CD (ER) 24 hr casule Take 180 mg by mouth daily. 04/29/2023 Active Active Problems Problem Noted Date Diagnosed Date History of basal cell carcinoma 11/28/2017 Follicular cyst of ovary 06/17/2014 Epidermal cyst 06/17/2014 Spinal stenosis of lumbar region 11/13/2012 Scoliosis 11/11/2012 Social History Tobacco Use Types Packs/Day Years Used Date Smoking Tobacco: Former Cigarettes Smokeless Tobacco: Never Comments:former passive smok er in college Sex and Gender Information Value Date Recorded Sex Assigned at Not on file Gender Identity Not on file Sexual Orientation Not on file Last Filed Vital Signs Vital Sign Reading Time Taken Comments Blood Pressure 161/101 08/31/2013 2:49 PM EDT Pulse 85 08/31/2013 2:49 PM EDT Temperature - - Respiratory Rate 18 08/31/2013 2:49 PM EDT Oxygen Saturation 96% 08/31/2013 2:49 PM EDT Inhaled Oxygen Concentration - - Weight 73 kg (161 lb) 08/31/2013 2:27 PM EDT Height 177.8 cm (5' 10) 08/31/2013 2:27 PM EDT Body Mass Index 23.1 08/31/2013 2:27 PM EDT Plan of Treatment Health Maintenance Due Date Last Done Comments Tdap adult 1960 Tetanus vaccine 1960 Zoster vaccine (1 of 2) 1991 Advance Directive 1996 Bone Density Scan 2006 Pneumoccocal Vaccine: 65+ (1 of 1 - PCV) 2006 Covid-19 Vaccine (1 - season) 2023 Influenza (Flu) vaccine (1 o f 1 - Influenza standard series) 07/11/2024 Care Teams Rope Silica Machine Operator Relationship Specialty Start Date End Date Opal Bray APRN [address] [place] [address] PCP - General Family Medicine 07/22/23
--- OUTSIDE RECORDS SUMMARY | 2024-06-15 21:46 | XMS_ITS | Encounter Summary ---
Author Organization [facility] [place] [address] Care Team Providers Care Ring Striker Name Role Phone Gerri Kinney APRN Primary Care Provider [phone] Encounter Details Date Type Department Care Team (Late st Contact Info) Description 08/31/2013 Orders [place] [address] Radha Mccallum MD [facility] [place] [address] Social History Tobacco Use Types Packs/Day Years [...] Procedure Name Priority Date/Time Associated Diagnosis Comments FILM LIBRARY STORAGE ONLY PAIN CLINIC C ARM Routine 08/31/2013 2:20 PM EDT documented in this encounter Results * Film Library-storage only pain clinic C-arm (08/31/2013 2:20 PM EDT) 08/31/2013 2:20 PM EDT Narrative [facility] - 07/06/2014 4:48 PM EDT This is a non-reportable exam. Procedure Note Ric Tang - 07/06/2014 This is a non-reportable exam. Radha Mccallum MD [facility] FILM LIBRARY ORD ERABLES RAD [address] [facility] [place] [address] documented in this encounter Visit Diagnoses Not on filedocumented in this encounter Care Teams Ring Striker Relationship Specialty Start Date End Date Gerri Kinney APRN PCP - General 08/31/13 11/27/17 documented as of this encounter
--- OUTSIDE RECORDS SUMMARY | 2024-06-15 21:46 | XMS_ITS | Encounter Summary ---
Author Organization [facility] [place] [address] Care Team Providers Care Manager Operating Name Role Phone Unknown Primary Care Provider Unavailabl e Reason for Visit * Reason Comments Follow-up Encounter Details Date Type Department Care Team (Late st Contact Info) Description 08/14/2022 9:45 AM EDT Office Visit Dermatology at [address] [place] [phone] Cisco Miranda MD [address] [facility] [place] [address] Seborrheic keratosis; Sebaceous hyperplasia Social History Tobacco Use Types Packs/Day Years Used Date Smoking Tobacco: Former Cigarettes Smokeless Tobacco: Never Comments:former passive smok er in college Sex and Gender Information Value Date Recorded Sex Assigned at Not on file Gender Identity Not on file Sexual Orientation Not on file documented as of this encounter Progress Notes * Cisco Miranda MD - 08/14/2022 9:45 AM EDT Problem: New lesions of concern Lorraine follows up after last seeing me in March 2019. She has a lesion on the left nasal ala she is concerned may be a BCCA, and she has an area on her back she like me to check Physical examination reveals an area of sebaceous hyperplasia about the left nasal ala on the left nasal tip. She has a dilated pore of Stanley of the central upper back and a benign examination of theback with several seborrheic keratoses and benign-appearing nevi. Assessment plan: Benign skin examination 1. Patient reassured about benign skin examination. Reassured about benign seborrheic keratoses andsebaceous hyperplasia. 2. Return to clinic as needed for new lesion/concerns. documented in this encounter Plan of Treatment Not on file documented as of this encounter Visit Diagnoses Diagnosis Seborrheic keratosis Other seborrheic keratosis Sebaceous hyperplasia Other specified disease of sebaceous glands documented in this encounter Care Teams Manager Operating Relationship Specialty Start Date End Date Unknown None PCP - General 05/15/21 07/21/23 documented as of this encounter
--- OUTSIDE RECORDS SUMMARY | 2024-06-15 21:46 | XMS_ITS | Encounter Summary ---
Author Organization [facility] [place] [address] Care Team Providers Care Lead Engineer Name Role Phone None Primary Care Provider Yolanda e Encounter Details Date Type Department Care Team (Late st Contact Info) Description 10/12/2012 Orders Only Neurosurgery at [facility] [place] [address] Librado Wong MD [facility] [place] [address] Social History Tobacco Use Types Packs/Day Years [...] Associated Diagnosis Comments FILM LIBRARY STORAGE ONLY MR SPINE Routine 10/12/2012 11:14 AM EST documented in this encounter Results * Film Library- Storage only MR Spine (10/12/2012 11:14 AM EST) Anatomical Region Laterality Modality Other 10/12/2012 11:1 4 AM EST Narrative 12/30/2013 9:40 PM EST This is a non-reportable exam. Procedure Note Jadon Tang - 12/30/2013 This is a non-reportable exam. Librado Wong MD IMG FILM LIBRARY ORD ERABLES documented in this encounter Visit Diagnoses Not on filedocumented in this encounter Care Teams Lead Engineer Relationship Specialty Start Date End Date None None PCP - General 10/02/10 08/30/13 documented as of this encounter
--- OUTSIDE RECORDS SUMMARY | 2024-06-15 21:46 | XMS_ITS | Encounter Summary ---
Author Organization [facility] Address [facility] [place] [address] Care Team Providers Care Public Health Physician Name Role Phone None Primary Care Provider Unavailabl e Encounter Details Date Type Department Care Team (Latest Contact Info) Description 01/17/2012 5:51 PM EST - 01/17/2012 11:59 PM EST Hospital [place] [address] Manuel Crowell MD [facility] [address] [place] [address] Discharge Disposition: Home Social History Tobacco Use Types Packs/Day Years Used Date Smoking Tobacco: Never Assessed Sex and Gender Information Value Date Recorded Sex Assigned at Not on file Gender Identity Not on file Sexual Orientation Not on file documented as of this encounter Plan of Treatment Not on file documented as of this encounter Procedures Procedure Name Priority Date/Time Associated Diagnosis Comments SURGICAL PATHOLOGY REPORT Routine 01/17/2012 5:56 PM EST documented in this encounter Results * SURGICAL PATHOLOGY REPORT (01/17/2012 5:56 PM EST) Surgical Pathology Report ? [facility] ? Provider: ?? MANUEL CROWELL ?Pt. Name: ?? Iqra HICKEY ? Acc #: ?[id number] ? Pt. ? Col Date: ?? 01/17/2012 ?/Sex: ?1940,(71 ? years),Female ? Rec Date: ?? 01/17/2012 ?LOC: ?RRMO ? SURGICAL PATHOLOGY ? ---Pathologic Diagnosis--- ? A - Skin, mid upper sternum, shave biopsy: ? 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 margins. ? B - Skin, left dorsum of nose, shave biopsy: ? Pigmented actinic keratosis. ? C - Skin, right nasal sill, shave biopsy: ? Basal cell carcinoma, transected at the base. ? CR-0 ? 01/18/12 ? AJE ? 01/20/12 Verified by: ? Bao Rey MD. ? Dermatopathologist ? (Electronic Signature) ? The attending pathologist whose signature appears on this report has ? reviewed all diagnostic slides and has edited the gross and/or ? microscopic portion of the report in rendering the final pathologic ? diagnosis. ? ---Microscopic Description--- ? Slides reviewed, microscopic description not recorded. ? ---Gross Description--- ? A - Labeled/Fixative: A mid upper sternum, formalin. ? Qty/Size/Weight: ?Single shave, 0.7 cm, pham-brown and purple-stained ? skin. ? Sections/Processing: ??Inked. ??Trisected. ??(T1) ? B - Labeled/Fixative: B L dorsum of nose, formalin. ? Qty/Size/Weight: ?Single shave, 0.5 x 0.4 cm, pham and purple-stained ? skin. ? Sections/Processing: ??Inked. ??Bisected. ??(T1) ? C - Labeled/Fixative: C R nasal sill, formalin. ? Qty/Size/Weight: ?Single shave, 0.5 x 0.4 cm, pham skin. ? Sections/Processing: ??Inked. Bisected. ??(T1) aje/CJL ? [facility] ? Provider: ?? MANUEL CROWELL ?Pt. Name: ?? Iqra HICKEY ? Acc #: ?[id number] ? Pt. ? Col Date: ?? 01/17/2012 ?/Sex: ?1940,(71 ? years),Female ? Rec Date: ?? 01/17/2012 ?LOC: ?RRMO ? ---Clinical Information--- ? Specimen Submitted: ? SURGICAL PATHOLOGY ? A - Mid upper sternum, shave ? B - L dorsum of nose, shave ? C - R nasal sill, shave ? Manuel Crowell MD, [facility] ? [facility] ? Lower Level ? [address] [facility] ? [place] [address] ? [phone] (Phone) ? Clinical History/Diagnosis: ? A - Keloid vs BCC ? B - Scar vs BCC ? C - Scar vs BCC MEGHNA SMITHIUM 01/17/2012 5:56 PM EST Manuel Crowell MD PATHOLOGY/CYTOLOGY O GAVIN Performing Organization Address City/State/[facility] Co de Phone Number MEGHNA SMITHIUM documented in this encounter Visit Diagnoses Not on filedocumented in this encounter Care Teams Public Health Physician Relationship Specialty Start Date End Date None None PCP - General 10/02/10 08/30/13 documented as of this encounter
--- OUTSIDE RECORDS SUMMARY | 2024-06-15 21:46 | XMS_ITS | Encounter Summary ---
Author Organization [facility] Address [facility] [place] [address] Care Team Providers Care Supervisor Area Name Role Phone Luigi Rodarte Primary Care Provider [phone] Encounter Details Date Type Department Care Team (Late st Contact Info) Description 08/24/2019 Telephone Dermatology at [facility] [address] [place] [address] Randall Wong MD [facility] [address] [place] [address] Social History Tobacco Use Types Packs/Day Years Used Date Smoking Tobacco: Former Cigarettes Smokeless Tobacco: Never Comments:former passive smok er in college Sex and Gender Information Value Date Recorded Sex Assigned at Not on file Gender Identity Not on file Sexual Orientation Not on file documented as of this encounter Miscellaneous Notes * Telephone Encounter - Rina Bailey - 08/24/2019 3:02 PM EDT 08/24 spoke to pt. Does not wish to schedule now since she is waiting to hear when her grandson is coming to visit and then she goes away for [place]. She will call when she is ready. documented in this encounter Plan of Treatment Not on file documented as of this encounter Visit Diagnoses Not on filedocumented in this encounter Care Teams Supervisor Area Relationship Specialty Start Date End Date Luigi Rodarte PA [address] [place] [address] PCP - General General Internal Medicine 11/28/1705/14 documented as of this encounter
--- OUTSIDE RECORDS SUMMARY | 2024-06-15 21:46 | XMS_ITS | Encounter Summary ---
Author Organization [facility] Address [facility] [place] [address] Care Team Providers Care Truck Railroad And Bus Motor Mechanic Name Role Phone Luigi Rodarte Primary Care Provider [phone] Reason for Visit * Reason Comments Skin Lesion Encounter Details Date Type Department Care Team (Late st Contact Info) Description 08/23/2019 1:00 PM EDT Office Visit Dermatology at [facility] [address] [place] [address] Randall Wong MD [facility] [address] [place] [address] Epidermal inclusion cyst Social History Tobacco Use Types Packs/Day Years Used Date Smoking Tobacco: Former Cigarettes Smokeless Tobacco: Never Comments:former passive smok er in college Sex and Gender Information Value Date Recorded Sex Assigned at Not on file Gender Identity Not on file Sexual Orientation Not on file documented as of this encounter Progress Notes * Randall Wong - 08/23/2019 1:00 PM EDT Images from the original note were not included. DERMATOLOGY - ESTABLISHED PATIENT FOLLOW-UP Date of service: 08/23/2019 Iqra Hickey : 1940, 78 y.o. Chief Complaint: Chief Complaint Patient presents with ??? Skin Lesion HPI: Iqra Hickey is a 78 y.o. female last seen by Dr. Miranda on 03/12/2019. Ms. Hickey returns today for a lump on the back of her neck that has been present for 6 months. It was initially asymptomatic. However, last week it became inflamed and red, and she reports that it isvery sore. Relevant Skin History: 01/17/2012: Mid upper sternum, sclerosing BCC Left dorsum of nose, pigmented AK Right nasal sill, BCC Family History: Melanoma: Social History: - Medications: Current Outpatient Medications Medication Sig Dispense Refill ??? melatonin 3 mg Tab Take 6 mg by mouth nightly. ??? MORINDA CITRIFOLIA FRUIT (ROLANDA ORAL) Take by mouth. rolanda juice- makes a juice and drinks it daily No current facility-administered medications for this visit. Allergies: No Known Allergies Review of Systems: - General: Feels well. - Skin: No other skin concerns. Examination: - Constitutional: Patient was alert, well-appearing and in no noticeable distress. - Skin: A focused examination of the posterior neck was performed. - A female nurse was present and on standby during my examination. Diagnosis/Skin findings/Assessment/Plan: # Epidermal inclusion cyst, inflamed - Posterior neck: 1.5cm tender subcutaneous nodule with central punctum. - Discussed benefits and expectations of excision. Informed patient that it cannot be removed untilthe inflammation has resolved. - Rx: Doxycycline 100mg - Take 1 capsule twice daily for 10 days. - Joint decision to pursue intralesional Kenalog at this time due to lesion being symptomatic. Procedure Note: Kenalog 20 mg/mL injected intralesionally into the posterior neck, total 0.5mL. Discussed indication for this procedure and potential side effects including ulceration and skin atrophy. Kenalog 20 mg/mL LOT: [id number] EXP: JUL 2020 RTC: For next available EIC excision. Routed to [facility] for scheduling. Note initiated by STEFANY Shaikh. I, Zahida Camarena, have performed the documentation for this encounter in the presence of and acting as a scribe for Randall Wong MD. I performed the services which were documented by the scribe, and I agree with the accuracy of the documentation in this encounter. Randall Wong MD Reviewed and signed by: Randall Wong MD Resident in Dermatology [facility] Patient seen and evaluated with staff oil process stillman: Vinod Granados MD Section of Dermatology [facility] * Jac Granados MD - 08/23/2019 1:00 PM EDT .somkalanisdir documented in this encounter Plan of Treatment Not on file documented as of this encounter Visit Diagnoses Diagnosis Epidermal inclusion cyst Sebaceous cyst documented in this encounter Care Teams Truck Railroad And Bus Motor Mechanic Relationship Specialty Start Date End Date Luigi Rodarte PA [address] [place] [address] PCP - General General Internal Medicine 11/28/1705/14 documented as of this encounter
--- OUTSIDE RECORDS SUMMARY | 2024-06-15 21:46 | XMS_ITS | Encounter Summary ---
Author Organization [facility] [place] [address] Care Team Providers Care Peoplesoft Business Analyst Name Role Phone None Primary Care Provider Yolanda e Encounter Details Date Type Department Care Team (Late st Contact Info) Description 10/13/2012 Orders Only Neurosurgery at [facility] [place] [address] Librado Wong MD [facility] [place] [address] Social History Tobacco Use Types Packs/Day Years [...] FILM LIBRARY STORAGE ONLY MR SPINE Routine 10/13/2012 11:06 AM EST documented in this encounter Results * Film Library- Storage only MR Spine (10/13/2012 11:06 AM EST) Anatomical Region Laterality Modality Other 10/13/2012 11:0 6 AM EST Narrative 12/30/2013 9:40 PM EST This is a non-reportable exam. Procedure Note Jadon Tang - 12/30/2013 This is a non-reportable exam. Librado Wong MD IMG FILM LIBRARY ORD ERABLES documented in this encounter Visit Diagnoses Not on filedocumented in this encounter Care Teams Peoplesoft Business Analyst Relationship Specialty Start Date End Date None None PCP - General 10/02/10 08/30/13 documented as of this encounter
--- OUTSIDE RECORDS SUMMARY | 2024-06-15 21:46 | XMS_ITS | Encounter Summary ---
Author Organization [facility] Address [address] [place] [address] Care Team Providers Care Labor Conciliator Name Role Phone Unavailable Primary Care Provider Unavailabl e Encounter Details Date Type Department Care Team (Late st Contact Info) Description 01/31/2004 Results Only [facility] - Maple conversion [address] [place] [address] Jenni Saldivar, [facility] [address] [place] [phone] Social History Tobacco Use Types Packs/Day Years Used Date Smoking Tobacco: Never Assessed Sex and Gender Information Value Date Recorded Sex Assigned at Not on file Gender Identity Not on file Sexual Orientation Not on file documented as of this encounter Plan of Treatment Not on file documented as of this encounter Procedures Procedure Name Priority Date/Time Associated Diagnosis Comments CYTOPATHOLOGY Routine 01/31/2004 0:00 EST documented in this encounter Results * CYTOPATHOLOGY (01/31/2004 0:00 EST) Pathology Report: CYTOPATHOLOGY REPORT Reports generated via electronic interface contain original data; however they are lacking the format of the original report. Caution should be taken when reading/interpreti ng unformatted reports. Name: ? Iqra HICKEY ? Accession #: ? [id number] : ? 1940 (Age: 63) ??F ?Collect Date: ? 01/31/2004 Location: ? [facility] ? Receive Date: ? 02/02/2004 Provider: ?JENNI SALDIVAR FRENCH TRANSLATOR Copy to: ? Specimen/Source: ?ThinPrep Pap Test, Cervix/Endocervix Last Menstrual Period: ? Other: ? Additional clinical information: 12/14/03 unsatisfactory pap HPVA - HPV testing requested if ASC-US on the current ThinPrep Pap test. ? SPECIMEN ADEQUACY ? Unsatisfactory for Evaluation, - insufficient numbers of squamous epithelial cells (less than 10% of expected cellularity) GENERAL CATEGORIZATION ? Specimen processed and examined, but unsatisfactory for evaluation of epithelial abnormality. Recommend repeat Pap test or further follow up, as clinically indicated. ? Document reviewed and electronically signed by: ? JOVANI Borjas(ASCP) ? Report Date: ??02/10/2004 09:34 End of Report SHOLA WITT 01/31/2004 02/02/2004 Jenni Saldivar FRENCH TRANSLATOR PATHOLOGY ORDERABLES Performing Organization Address City/State/[facility] Co de Phone Number SHOLA WITT [address] [place] [address] documented in this encounter Visit Diagnoses Not on filedocumented in this encounter
--- OUTSIDE RECORDS SUMMARY | 2024-06-15 21:46 | XMS_ITS | Encounter Summary ---
Author Organization [facility] Address [facility] [place] [address] Care Team Providers Care Oven Stripper Name Role Phone None Primary Care Provider Unavailabl e Encounter Details Date Type Department Care Team (Late st Contact Info) Description 11/13/2012 Orders Only [facility] [place] [address] Melanie Fernandez MD [facility] [place] [address] Social History Tobacco Use Types Packs/Day Years [...] STORAGE ONLY PAIN CLINIC C ARM Routine 11/13/2012 1:00 PM EST documented in this encounter Results * Film Library-storage only pain clinic C-arm (11/13/2012 1:00 PM EST) 11/13/2012 1:00 PM EST Narrative RAD - 06/27/2014 7:06 PM EDT This is a non-reportable exam. Procedure Note Ric Tang - 06/27/2014 This is a non-reportable exam. Melanie Fernandez MD IMG FILM LIBRARY ORDERABLES [facility] [address] [place] [address] documented in this encounter Visit Diagnoses Not on filedocumented in this encounter Care Teams Oven Stripper Relationship Specialty Start Date End Date None None PCP - General 10/02/10 08/30/13 documented as of this encounter
--- OUTSIDE RECORDS SUMMARY | 2024-06-15 21:46 | XMS_ITS | Encounter Summary ---
[place] [address] Care Team Providers Care Turfgrass Management Professor Name Role Phone None Primary Care Provider Unavailabl e Encounter Details Date Type Department Care Team (Late st Contact Info) Description 11/06/2012 Abstract [place] [address] Dory Mckeon, TELEMETRY NURSE Social History Tobacco Use Types Packs/Day Years Used Date Smoking Tobacco: Never Assessed Sex and Gender Information Value Date Recorded Sex Assigned at Not on file Gender Identity Not on file Sexual Orientation Not on file documented as of this encounter Plan of Treatment Not on file documented as of this encounter Visit Diagnoses Not on filedocumented in this encounter Care Teams Turfgrass Management Professor Relationship Specialty Start Date End Date None None PCP - General 10/02/10 08/30/13 documented as of this encounter
--- OUTSIDE RECORDS SUMMARY | 2024-06-15 21:46 | XMS_ITS | Encounter Summary ---
Author Organization [facility] [place] [address] Care Team Providers Care Survey Technician Name Role Phone Luigi Rodarte Primary Care Provider [phone] Reason for Visit * Reason Comments Follow-up Skin Check Encounter Details Date Type Department Care Team (Late st Contact Info) Description 11/28/2017 2:15 PM EST Office Visit Dermatology at [address] [phone] Cisco Miranda MD [address] [place] [address], [facility] [place] [address] History of basal cell carcinoma; Epidermal cyst Social History Tobacco Use Types Packs/Day Years Used Date Smoking Tobacco: Former Cigarettes Smokeless Tobacco: Never Comments:former passive smok er in college Sex and Gender Information Value Date Recorded Sex Assigned at Not on file Gender Identity Not on file Sexual Orientation Not on file documented as of this encounter Progress Notes * Cisco Miranda MD - 11/28/2017 2:15 PM EST PROBLEM: 1. New skin lesion of concern. 2. 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 3. 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 Violeta follows up and is concerned about a cyst on her back. She has had bad experiences with them in the past having ruptured and becoming infected and she would like to have this one removed, as it is enlarging and she would like to it taken care of before it ruptures. Physical examination reveals 2 follicular cysts, one just to the right of her mid-spinal back, a centimeter in diameter with an enlarged central poral orifice. She has a second follicular cyst just to the left of the prespinous back 2 cm in diameter. It is not inflamed but is firm. A/P: Follicular cyst. a. At patient request we will excise nevus on the back before it ruptures and becomes infected, as her others have in the past. b. We will send it for pathologic analysis at her request. c. We will schedule a 45-minute appointment. Patient may continue her warfarin which she takes because of AFib, as well as metoprolol. cc: ESTEFANIA Zuniga documented in this encounter Plan of Treatment Not on file documented as of this encounter Visit Diagnoses Diagnosis History of basal cell carcinoma Personal history of other malignant neoplasm of skin Epidermal cyst Sebaceous cyst documented in this encounter Care Teams Survey Technician Relationship Specialty Start Date End Date Luigi Rodarte PA [address] [place] [address] PCP - General General Internal Medicine 11/28/1705/14 documented as of this encounter
--- OUTSIDE RECORDS SUMMARY | 2024-06-15 21:46 | XMS_ITS | Encounter Summary ---
Author Organization [facility] Address [address] [place] [address] Care Team Providers Care Compliance Coordinator Name Role Phone Unavailable Primary Care Provider Unavailabl e Encounter Details Date Type Department Care Team (Late st Contact Info) Description 12/14/2003 Results Only [facility] - Maple conversion [address] [place] [address] Jenni Saldivar, [facility] [address] [place] [phone] Social History Tobacco Use Types Packs/Day Years Used Date Smoking Tobacco: Never Assessed Sex and Gender Information Value Date Recorded Sex Assigned at Not on file Gender Identity Not on file Sexual Orientation Not on file documented as of this encounter Plan of Treatment Not on file documented as of this encounter Procedures Procedure Name Priority Date/Time Associated Diagnosis Comments CYTOPATHOLOGY Routine 12/14/2003 0:00 EST documented in this encounter Results * CYTOPATHOLOGY (12/14/2003 0:00 EST) Pathology Report: CYTOPATHOLOGY REPORT Reports generated via electronic interface contain original data; however they are lacking the format of the original report. Caution should be taken when reading/interpreti ng unformatted reports. Name: ? Iqra HICKEY ? Accession #: ? [id number] : ? 1940 (Age: 63) ??F ?Collect Date: ? 12/14/2003 Location: ? [facility] ? Receive Date: ? 12/16/2003 Provider: ?JENNI SALDIVAR COLLEGE HIRE Copy to: ? Specimen/Source: ?ThinPrep Pap Test, Cervix/Endocervix Last Menstrual Period: ? 4 yrs ago Other: ? HPVA - HPV testing requested if ASC-US [...] Document reviewed and electronically signed by: ? DAVID George(ASCP) ? Report Date: ??12/21/2003 10:59 End of Report SHOLA WITT 12/14/2003 12/16/2003 Jenni Saldivar COLLEGE HIRE PATHOLOGY ORDERABLES Performing Organization Address City/State/[facility] Co de Phone Number SHOLA WITT [address] [place] [address] documented in this encounter Visit Diagnoses Not on filedocumented in this encounter
--- OUTSIDE RECORDS SUMMARY | 2024-06-15 21:46 | XMS_ITS | Encounter Summary ---
Author Organization [facility] Address [address] [place] [address] Care Team Providers Care Cigar Head Holer Name Role Phone Unavailable Primary Care Provider Unavailabl e Encounter Details Date Type Department Care Team (Late st Contact Info) Description 12/22/2013 Results Only [facility] [phone] Sergio Mejia MD [address] [place] [address] Social History Tobacco Use Types Packs/Day Years Used Date Smoking Tobacco: Never Assessed Sex and Gender Information Value Date Recorded Sex Assigned at Not on file Gender Identity Not on file Sexual Orientation Not on file documented as of this encounter Plan of Treatment Not on file documented as of this encounter Procedures Procedure Name Priority Date/Time Associated Diagnosis Comments SURGICAL PATHOLOGY Routine 12/22/2013 8:55 EST documented in this encounter Results * SURGICAL PATHOLOGY (12/22/2013 8:55 EST) Pathology Report: SURGICAL PATHOLOGY REPORT Reports generated via electronic interface contain original data; however they are lacking the format of the original report. Caution should be taken when reading/interpreti ng unformatted reports. Name: ? Iqra HICKEY ? Accession #: ? [id number] ? : ? 1940 (Age: 73) ??F ? Collect Date: ? 12/22/2013 ? Location: ? [facility] ? Receive Date: ? 12/23/2013 ? Provider: SERGIO MEJIA MD Copy to: JE SPAULDING FISHING ROD TRIMMER ? Final Pathologic Diagnosis: ENDOMETRIUM, BIOPSY: - ??Mucus with minute fragments of atrophic endometrial and endocervical glandular epithelium. Comment: The amount of endometrial and endocervical tissue is extremely limited. Dr. Bose 12/24/2013 03:11 PM Document reviewed and electronically signed by: Mk Bose MD Report ??Date: 12/24/2013 16:36 By the signature above, the attending physician certifies that he/she has personally conducted a gross and/or microscopic examination of the described specimens and rendered or confirmed the above diagnosis. Specimen(s) Received: Endometrial biopsy Clinical History: Postmenopausal bleeding Gross Description: ? Received in formalin labelled with proper patient identification (initials A, L) and endometrial biopsy is an aggregate of opaque, white loculated mucus (1.5 cc). Submitted in toto in block 1. Leny Monson 12/23/2013 10:16 AM End of Report SHOLA WITT 12/22/2013 8:55 EST 12/23/2013 8:55 EST Sergio Mejia MD PATHOLOGY ORDERABLES Performing Organization Address City/State/[facility] Co de Phone Number [facility] [address] [place] [address] documented in this encounter Visit Diagnoses Not on filedocumented in this encounter
--- OUTSIDE RECORDS SUMMARY | 2024-06-15 21:46 | XMS_ITS | Encounter Summary ---
Author Organization [facility] Address [facility] [place] [address] Care Team Providers Care Apartment Maintenance Manager Name Role Phone None Primary Care Provider Unavailabl e Reason for Referral * Consultation (Routine) - Closed Specialty Diagnoses / Procedures Referred By Gamaliel t Referred To Contact Pain Management Diagnoses Lumbar stenosis Nancy Herring, ASSOCIATE SALES REPRESENTATIVE [facility] [place] [address] [facility] [address] [place] [phone] Referral ID Status Reason Start Date Expiration Date V isits Requested Visits Authorized [id number] Closed Consult, Test & Treat 11/11/2012 05/10/2013 1 1 Reason for Visit * Reason Comments Right Leg Pain progressively worsen ing Encounter Details Date Type Department Care Team (Late st Contact Info) Description 11/11/2012 2:20 PM EST Office [place] [phone] Librado Wong MD [facility] [place] [place] [address] Lumbar stenosis (Primary Dx); Scoliosis Discharge Disposition: Home Social History Tobacco Use Types Packs/Day Years Used Date Smoking Tobacco: Former Cigarettes Smokeless Tobacco: Never Comments:former passive smok er in college Sex and Gender Information Value Date Recorded Sex Assigned at Not on file Gender Identity Not on file Sexual Orientation Not on file documented as of this encounter Last Filed Vital Signs Vital Sign Reading Time Taken Comments Blood Pressure 126/76 11/11/2012 2:08 PM EST Pulse - - Temperature - - Respiratory Rate - - Oxygen Saturation - - Inhaled Oxygen Concentration - - Weight 73.5 kg (162 lb) 11/11/2012 2:08 PM EST Height 177.8 cm (5' 10) 11/11/2012 2:08 PM EST Body Mass Index 23.24 11/11/2012 2:08 PM EST documented in this encounter Progress Notes * Librado Wong MD - 11/11/2012 3:10 PM EST I have just seen Ms. Hickey [facility] at the request of Abelino Bahena. She is a 72-year-old female with a history of right lower extremity pain. She was sent here for potential surgical evaluation. She was seen by Nancy Herring, who dictated a detailed history and physical. Briefly, she is having right leg pain that is predominantly in her lateral thigh and into her right guaman. She has had several falls as a result. She has not had any recent conservative treatment. Review of her MRI shows a fairly significant scoliosis in the lumbar region that seems centered around the L3-4 region. The scoliosis is concave on the right side. As a result, she has foraminal narrowing specifically at L3-4 and also has an associated spondylolisthesis at this region. She also has some mild narrowing at L4-5 and L5-S1. I told Ms. Hickey that foraminotomies are a possibility, but in the setting of a scoliosis like this, it becomes much more complicated. The narrowing may not be from typical arthritic elements that can be easily removed, but rather, a closer approximation of the pedicles because of her dextroscoliosis. As a result, a simple decompressive effort might not improve her symptoms and could worsen her scoliotic curve. Alternatively, one could stabilize the area and even try to improve her curve, but this would warrant a more significant operation. To that end, I would try to avoid surgery until the last possible alternative, and I would recommend something like physical therapy or an epidural steroid injection. She seemed very interested in the latter and we have taken the liberty of ordering a referral for her. As long as these are alleviating her pain, then I would continue on that path and only use surgery as really a last alternative. She expressed understanding and will let us know if her symptoms are persistent. * Nancy Herring, ASSOCIATE SALES REPRESENTATIVE - 11/11/2012 2:23 PM EST Iqra Hickey is a 72 y.o. female to be seen by Librado Wong M.D. of our neurosurgery department. Chief complaint is right leg symptoms. History of present illness: She's had this issue for 3 years, originally this was in the upper thigh, she was seen by orthopedics close to home who did imaging and referred her to neurology. It was neurology who referred her to Dr. Wong today. Symptoms today do not include low back pain, she has pain into the right lateral thigh, right guaman,she has numbness in her right guaman, she has weakness in her right leg at times and has fallen on the stairs. She rates her pain today at 3/10. Symptoms are worse with walking greater than half mile, standing 15-20 minutes, she's not sure if a cart is helpful, but sitting, laying, and rest can be helpful. She's not had any recent physical therapy, no steroids or injection. Review of systems is a positive for history of hepatitis years ago, she's not sure what kind but was jaundice. Is a nonsmoker, is retired, nondrinker. No other GI, , or constitutional symptoms. Observation: She has pressured speech that is tangential. She has poor eye contact. No stated height her weight, though she does seem to be well proportioned and appears healthy. Has a normal gait, can heel walk and toe walk. Has remained partially dressed today but does not appear to have a significant scoliotic deformity, she has no pain with palpation along her spine. From her waist can flex forward to the floor, she extends about 15' with no increased pain with these maneuvers, has a normalmotor evaluation, has decreased sensation in the anterior right guaman that she said represents paresthesia that she was diagnosed with some time ago. Reflexes are 2+ at knees and heels. Straight leg raise, femoral tension stretch, and Rachael negative. No clonus. No Babinski. Palpable pulses x2. documented in this encounter Plan of Treatment Scheduled Referrals Name Type Priority Associated Diagnoses Orde r Schedule Referral to Pain Clinic Outpatient Referral Routine Lumbar stenosis Ordered: 11/11/2012 documented as of this encounter Visit Diagnoses Diagnosis Lumbar stenosis- Primary Spinal stenosis, lumbar region, without neurogenic claudication Scoliosis Scoliosis (and kyphoscoliosis), idiopathic documented in this encounter Care Teams Apartment Maintenance Manager Relationship Specialty Start Date End Date None None PCP - General 10/02/10 08/30/13 documented as of this encounter
--- OUTSIDE RECORDS SUMMARY | 2024-06-15 21:46 | XMS_ITS | Encounter Summary ---
Author Organization [facility] [place] [address] Care Team Providers Care Tobacco Drying Machine Operator Name Role Phone None Primary Care Provider Unavailabl e Encounter Details Date Type Department Care Team (Late st Contact Info) Description 11/12/2012 External Results [place] [address] Dory Mckeon, [facility] Social History Tobacco Use Types Packs/Day Years [...] Procedure Name Priority Date/Time Associated Diagnosis Comments MRI LUMBAR SPINE WITHOUT CONTRAST Routine 10/12/2012 documented in this encounter Results * MRI lumbar spine without contrast (10/12/2012) Anatomical Region Laterality Modality L-spine Magnetic Resonan ce Historical Provider MD [facility] MRI ORDERABLE S documented in this encounter Visit Diagnoses Not on filedocumented in this encounter Care Teams Tobacco Drying Machine Operator Relationship Specialty Start Date End Date None None PCP - General 10/02/10 08/30/13 documented as of this encounter
--- OUTSIDE RECORDS SUMMARY | 2024-06-15 21:46 | XMS_ITS | Encounter Summary ---
Author Organization [facility] [place] [address] Care Team Providers Care Boiler Technician Name Role Phone None Primary Care Provider Unavailabl e Reason for Visit * Reason Onset Date Comments Pre Procedure Call 12/24/2012 Encounter Details Date Type Department Care Team (Late st Contact Info) Description 12/24/2012 Telephone [place] [phone] Chelsie Franco RN Pre Procedure Call Social History Tobacco Use Types Packs/Day Years Used Date Smoking Tobacco: Former Cigarettes Smokeless Tobacco: Never Comments:former passive smok er in college Sex and Gender Information Value Date Recorded Sex Assigned at Not on file Gender Identity Not on file Sexual Orientation Not on file documented as of this encounter Miscellaneous Notes * Telephone Encounter - Chelsie Franco RN - 12/24/2012 12:06 PM EST Fluoroscopy Procedure Request Procedure Requested: LESI Date(s) of Last Procedure: 11/13/2012 Did requested procedure relieve pain? _x__ Yes - For how long? Symptoms were partially relieved Patient taking anticoagulants? _x__ No Changes in usual pain pattern or pertinent recent trauma or surgery? _x__ No, patient transferred or will be contacted by intravenous therapy nurse to make appointment for requested procedure. Patient's questions regarding requested procedure were answered and patient verbalized understanding. Patient knows how to contact the Pain Management Center and understands that they may do so at any time should they have further questions or concerns. documented in this encounter Plan of Treatment Not on file documented as of this encounter Visit Diagnoses Not on filedocumented in this encounter Care Teams Boiler Technician Relationship Specialty Start Date End Date None None PCP - General 10/02/10 08/30/13 documented as of this encounter
--- OUTSIDE RECORDS SUMMARY | 2024-06-15 21:46 | XMS_ITS | Encounter Summary ---
Author Organization [facility] [place] [address] Care Team Providers Care Certified Medicine Aide Name Role Phone Luigi Rodarte Primary Care Provider [phone] Reason for Visit * Reason Comments Suture / Staple Removal Encounter Details Date Type Department Care Team (Late st Contact Info) Description 12/19/2017 11:30 AM EST Office Visit Dermatology at [address] [phone] Cisco Miranda MD [address] [facility] [place] [address] Visit for suture removal Social History Tobacco Use Types Packs/Day Years Used Date Smoking Tobacco: Former Cigarettes Smokeless Tobacco: Never Comments:former passive smok er in college Sex and Gender Information Value Date Recorded Sex Assigned at Not on file Gender Identity Not on file Sexual Orientation Not on file documented as of this encounter Progress Notes * Cisco Miranda MD - 12/19/2017 11:30 AM EST Problem: Follow-up for suture removal and biopsy results Lorraine follows up and has done well postoperatively Physical examination showed reveals good healing of the biopsy site which did come back showing a follicular cyst Assessment plan: Status post excision follicular cyst left back 1. Sutures removed 2. March DC wound wound care instructions 3. Return to clinic now as needed for new lesion/concerns. documented in this encounter Plan of Treatment Not on file documented as of this encounter Visit Diagnoses Diagnosis Visit for suture removal Encounter for removal of sutures documented in this encounter Care Teams Certified Medicine Aide Relationship Specialty Start Date End Date Luigi Rodarte PA [address] [place] [address] PCP - General General Internal Medicine 11/28/1705/14 documented as of this encounter
--- OUTSIDE RECORDS SUMMARY | 2024-06-15 21:46 | XMS_ITS | Encounter Summary ---
Author Organization [facility] [place] [address] Care Team Providers Care Welding Machine Operator Helper Arc Name Role Phone Gerri Kinney APRN Primary Care Provider [phone] Reason for Visit * Reason Comments Skin Check Encounter Details Date Type Department Care Team (Late st Contact Info) Description 06/17/2014 10:45 AM EDT Office Visit Dermatology at [address] [place] [address] Cisco Miranda MD [address] [facility], [place] [address] Epidermal cyst (Primary Dx) Social History Tobacco Use Types Packs/Day Years Used Date Smoking Tobacco: Former Cigarettes Smokeless Tobacco: Never Comments:former passive smok er in college Sex and Gender Information Value Date Recorded Sex Assigned at Not on file Gender Identity Not on file Sexual Orientation Not on file documented as of this encounter Patient Instructions * Patient Instructions* Opal Kraft LPN - 06/17/2014 11:21 AM EDT Images from the original note were not included. [facility] Bartholin Gland Cyst: After Your Visit Your Care Instructions The Bartholin glands are in a woman's vulva. This is the area around the vagina. The glands are normally about the size of a pea. They provide fluid to the vulvar area through a small opening. If theopening is blocked, the gland swells with fluid and forms a cyst. You can have a cyst for years with no symptoms. But if a cyst gets infected by bacteria, it can grow and become red and painful. Thisis called an abscess. Opening and draining the cyst usually cures the infection. You may have had a small tube (catheter) placed into the cyst or had minor surgery to let the cyst drain. The tube will usually be left in for at least 4 weeks. Your doctor may do a lab test to find out what kind of bacteria caused the infection. You may get antibiotics to kill the bacteria. You may have some drainage from the cyst for a few weeks. The gland should return to normal after the infection clears up. Follow-up care is a pickard part of your treatment and safety. Be sure to make and go to all appointments, and call your doctor if you are having problems. It's also a good idea to know your test resultsand keep a list of the medicines you take. How can you care for yourself at home? ?? If your doctor prescribed antibiotics, take them as directed. Do not stop taking them just because you feel better. You need to take the full course of antibiotics. ?? Sit in a few inches of warm water (sitz bath) 3 times a day and after bowel movements. The warm water helps the area heal and eases discomfort. ?? Take an brjm-ndl-gycfprl pain medicine such as acetaminophen (Tylenol), ibuprofen (Advil, Motrin), or naproxen (Aleve). Read and follow all instructions on the label. ?? Do not take two or more pain medicines at the same time unless the doctor told you to. Many painmedicines have acetaminophen, which is Tylenol. Too much acetaminophen (Tylenol) can be harmful. ?? Wear panty liners or pads if you have discharge from the draining cyst. ?? If you are sexually active, avoid sex until: ?? You have finished the antibiotics. ?? The area has healed. ?? If you had a catheter placed in the cyst to help it drain, follow your doctor's instructions foractivities until the tube comes out. When should you call for help? Call your doctor now or seek immediate medical care if: ?? Your pain gets worse. ?? You have a new or higher fever. ?? Your swelling increases. ?? The red area around the cyst gets bigger. Watch closely for changes in your health, and be sure to contact your doctor if: ?? The catheter falls out. ?? Your symptoms do not improve in 2 days. Where can you learn more? Visit our health information library at [email or web address] You can also view health information on [employer], your personal patient account. Log in or sign up today. Enter H276 in the search box to learn more about Bartholin Gland Cyst: After Your Visit. ?? [id number] [employer]. Care instructions adapted under license by [facility]. This care instruction is for use with your licensed healthcare professional. If you have questions about a medical condition or this instruction, always ask your healthcare professional. [employer] disclaims any warranty or liability for your use of this information. Content Version: 9.9.847975; Last Revised: January 28, 2013 documented in this encounter Progress Notes * Cisco Miranda MD - 06/17/2014 11:38 AM EDT Problem List: 1. Skin lesion of concern. 2. 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 3. History of BCCA, right inferior nasal orifice, March 1997. Violeta follows up and unfortunately lost her in March. She is concerned about two lesions on her back and would like to have me check them. She reminds me that she has had some basal cells by Mohs surgery in [place], but was not pleased with their procedure and the healing. She states that the lesions on her back have been there for some time and she wonders whether they are cancerous. Physical examination reveals two follicular cysts, one on the left and the right upper back just offside midline. Otherwise, examination is unremarkable. Assessment and Plan: 1. Follicular cyst. a. Patient reassured. b. No treatment necessary. c. Discussed the option of surgical excision, which the patient declines at this time. COPY: Gerri Kinney M.D. documented in this encounter Plan of Treatment Not on file documented as of this encounter Visit Diagnoses Diagnosis Epidermal cyst- Primary Sebaceous cyst documented in this encounter Care Teams Welding Machine Operator Helper Arc Relationship Specialty Start Date End Date Gerri Kinney APRN PCP - General 08/31/13 11/27/17 documented as of this encounter
--- OUTSIDE RECORDS SUMMARY | 2024-06-15 21:46 | XMS_ITS | Encounter Summary ---
Author Organization [facility] Address [facility] [place] [address] Care Team Providers Care Blast Furnace Supervisor Name Role Phone Gerri Spaulding APRN Primary Care Provider [phone] Reason for Visit * Reason Comments Right Leg Pain Encounter Details Date Type Department Care Team (Latest Contact Info) Description 08/31/2013 1:45 PM EDT Procedure [place] [id number] Radha Mccallum MD [address] [place] [address] Radha Mccallum MD [facility] [place] [address] Right lumbar radiculitis; Lumbar stenosis; Foraminal stenosis of lumbar region Discharge Disposition: Home Social History Tobacco Use [...] Mass Index 23.1 08/31/2013 2:27 PM EDT documented in this encounter Patient Instructions * Patient Instructions* Nancy Greco LPN - 08/31/2013 2:36 PM EDT Pain Management Center Discharge Instructions: You were seen by Dr. Radha Mccallum MD who performed Right transforaminal injection. [x] You may resume your normal activities: tomorrow. You may shower today. DO NOT tub bathe, use whirlpools, hot tubs or pool therapy for 2 days. RemoveBand-Aid(s) later today/tomorrow. Do not drive until tomorrow. Use caution walking/climbing stairs as you may be unsteady on your feet. You may use your usual medications, including pain medications, as directed, unless otherwise instructed. You may use an ice pack as needed for the first 24 hours, on for 20 minutes then off for 20 minutes. Do not apply heat today. Attempt to empty your bladder 4-6 hours after your procedure. You received the following medications: Lidocaine, Omnipaque (contrast dye) and Dexamethasone Sodium Phosphate 10 mg. During regular business hours, please phone the Pain Management Center at for appointments or with any questions or if the following or other troubling symptoms develop: 1) Prolonged dizziness or weakness (more than 1 day). 2) Localized swelling, redness or drainage at the injection site(s). 3) Temperature of 101 degrees that lasts for more than 4 hours. After 5 PM or on weekends, call and ask for Pain Clinic provider on-call. If you are unable to reach the Pain Management Center and have a complication, please call your Primary Care Provider or proceed to your local emergency department. Nancy Greco LPN Special instructions documented in this encounter Progress Notes * Nancy Greco LPN - 08/31/2013 2:28 PM EDT Pre-Procedure Screening Questions: 1. Status: No 2. 3. Patient states they have a truck driver's offsider to transport after procedure? Yes 4. Patient taking antibiotics at present? No 5. NPO per Pain Management Center protocol? No 6. 7. Patient diabetic: No __ borderline (not treated with medications) __ managed with oral medications __ managed with injected medications 8. Patient routinely taking anticoagulants ? No Date stopped Current INR Patient Vital Signs documented in Doc Flowsheets associated with this encounter. Patient Discharge Instructions were reviewed with patient and copy provided to patient. documented in this encounter Procedure Notes * Radha Mccallum MD - 08/31/2013 2:34 PM EDTAssociated Order(s): TRANSFORAMINAL INJECTION Procedure(s): TRANSFORAMINAL INJECTION Pre-Procedure Diagnose(s): Foraminal stenosis of lumbar region; Lumbar stenosis; Right lumbar radiculitis Transforaminal Epidural Steroid Injection with Fluoroscopic Guidance right L3-L4 , L4-5 Chief Complaint: Low back pain, lower extremity pain-right Iqra Hickey has been referred to the Pain Management Center for Lumbar Transforaminal Epidural Steroid Injection right L3-L4 . L4-5. The patient has significant lumbar stenosis at L4-5, L3-4; we therefore discussed trialing transforaminal epidural steroid injection. This had also been suggested by Dr. Fernandez as a next step for the patient. The patient is not sure how much relief that she had from LESI. COMMENTS: Pain location: Back, right leg Pain level: 01/17 Imaging reviewed Ms. Hickey was interviewed and the medical record reviewed. There were no medical, pharmacologic, radiographic or other structural contraindications to attempting fluoroscopically guided epidural steroid injection. Risks and expected side effects as well as potential benefit of the procedure were rev iewed with Ms. Hickey, and her voiced concerns were addressed. The printed consent form was signed and witnessed. The risks and benefits were reviewed with the patient including but not limited to post dural puncture, headache, infection, nerve injury, allergic reaction, possible increase in symptoms over the ensuing 24 to 48 hours, paralysis. The patient appeared to understand, questions were answered and the patient agreed to proceed. Standard time-out procedure was performed. Iqra Hickey was greeted by the nurse who verified patients name and . Patient was then taken to the fluoroscopy suite. TECHNIQUE: After informed written consent was obtained the patient was placed in the prone position. The lumbar spine spine was prepped with chloraprep and draped. Sterile technique was used ( cap, glove, mask were worn). Vitals signs were monitored, time out was done and the right side was marked with a radioopaque marker. The skin and subcutaneous structures were anesthetized with lidocaine 1% to a total volume of 5 ML at each level. Under fluoroscopic guidance, in ipsilateral oblique view, co-axial approach, 22 gauge spinal needle(s) were advanced to the base of the L-3 and L-4. pedicle(s). The needle(s) were advanced to the superio-posterior aspect of the neural foramen under lateral view. Oblique and AP views were rechecked.Under AP view Omnipaque 240 1 cc's was injected while visualized with digital subtraction. There was no evidence of intravascular uptake, the epidural space was delineated. Decadron 5 mg was injectedafter negative aspiration, at each level, followed by lidocaine 1% 0.25-ML at each level. Outcome: The patient tolerated the procedure well and had stable vital signs. The patient noted after getting up after the procedure that their pain was at a 0 out of 10 level. Preprocedure pain level was a 3 out of 10. Follow up plans and appointments were discussed with Iqra Hickey. The patient was observed in the pain clinic and then discharged after having met discharge criteria to the care of a truck driver's offsider. The patient received written instructions as documented in nursing records. COMMENTS: The patient tolerated the procedure well. Follow-up with Gerri Spaulding APRN. CC: GERRI SPAULDING APRN @PCPADD@ documented in this encounter Plan of Treatment Not on file documented as of this encounter Procedures Procedure Name Priority Date/Time Associated Diagnosis Comments TRANSFORAMINAL INJECTION Routine 08/31/2013 2:59 PM EDT Foraminal stenosis of lumbar region Lumbar stenosis Right lumbar radiculitis documented in this encounter Results * TRANSFORAMINAL INJECTION (08/31/2013 2:59 PM EDT) Narrative Radha Mccallum MD - 08/31/2013 2:59 PM EDT Radha Mccallum MD ? 08/31/2013 ??2:59 PM Transforaminal Epidural Steroid Injection with Fluoroscopic Guidance ??right L3-L4 , L4-5 Chief Complaint: Low back pain, lower extremity pain-right Iqra Hickey has been referred to the [facility] Center for Lumbar Transforaminal Epidural Steroid Injection ??right L3-L4 . L4-5. The patient has significant lumbar stenosis at L4-5, L3-4; we therefore discussed trialing transforaminal epidural steroid injection. This had also been suggested by Dr. Fernandez as a next step for the patient. The patient is not sure how much relief that she had from LESI. COMMENTS: Pain location: Back, right leg Pain level: 01/17 Imaging ??reviewed Ms. Hickey was interviewed and the medical record reviewed. ??There were no medical, pharmacologic, radiographic or other structural contraindications to attempting fluoroscopically guided epidural steroid injection. ??Risks and expected side effects as well as potential benefit of the procedure were reviewed with Ms. Hickey, and her voiced concerns were addressed. ??The printed consent form was signed and witnessed. The risks and benefits were reviewed with the patient including but not limited to post dural puncture, headache, infection, nerve injury, allergic reaction, possible increase in symptoms over the ensuing 24 to 48 hours, paralysis. ??The patient appeared to understand, ??questions were answered and the patient agreed to proceed. Standard time-out procedure was performed. Iqra Hickey was greeted by the nurse who verified patients name and . ??Patient was then taken to the fluoroscopy suite. TECHNIQUE: ??After informed written consent was obtained the patient was placed in the prone position. ??The ?lumbar spine ?? spine was prepped with chloraprep and draped. ??Sterile technique was used ( cap, glove, mask were worn). Vitals signs were monitored, time out was done and the ?? right side was marked with a radioopaque marker. ??The skin and subcutaneous structures were anesthetized with lidocaine 1% to a total volume of 5 ??ML at each level. Under fluoroscopic guidance, in ipsilateral oblique view, co-axial approach, ??22 gauge spinal needle(s) were advanced to the base of the ?? L-3 and L-4. ?? pedicle(s). ??The needle(s) were advanced to the superio-posterior aspect of the neural foramen under lateral view. ??Oblique and AP views were rechecked. ?? Under AP view Omnipaque 240 ??1 cc's was injected while visualized with digital subtraction. ?? There was no evidence of intravascular uptake, the epidural space was delineated. ??Decadron ??5 ??mg was injected after negative aspiration, at each level, followed by lidocaine 1% 0.25-ML at each level. Outcome: The patient tolerated the procedure well and had stable vital signs. The patient noted after getting up after the procedure that their pain was at a ??0 out of 10 level. ?? Preprocedure pain level was a ??3 out of 10. ?? Follow up plans and appointments were discussed with Iqra Hickey. The patient was observed in the pain clinic and then discharged after having met discharge criteria ??to the care of a truck driver's offsider. ??The patient received written instructions as documented in nursing records. ?? COMMENTS: The patient tolerated the procedure well. Follow-up with Gerri Spaulding APRN. CC: GERRI SPAULDING APRN @PCPADD@ Procedure Note Radha Mccallum MD - 08/31/2013 2:34 PM EDT Transforaminal Epidural Steroid Injection with Fluoroscopic Guidanceright L3-L4 , L4-5 Chief Complaint: Low back pain, lower extremity pain-right Iqra Hickey has been referred to the [facility] for LumbarTransforaminal Epidural Steroid Injection right L3-L4 . L4-5. The patienthas significant lumbar stenosis at L4-5, L3-4; we therefore discussedtrialing transforaminal epidural steroid injection. This had also beensuggested by Dr. Fernandez as a next step for the patient. The patient isnot sure how much relief that she had from LESI. COMMENTS: Pain location: Back, right leg Pain level: 01/17 Imaging reviewed Ms. Hickey was interviewed and the medical record reviewed. There were nomedical, pharmacologic, radiographic or other structural contraindicationsto attempting fluoroscopically guided epidural steroid injection. Risksand expected side effects as well as potential benefit of the procedurewere reviewed with Ms. Hickey, and her voiced concerns were addressed. Theprinted consent form was signed and witnessed. The risks and benefits werereviewed with the patient including but not limited to post duralpuncture, headache, infection, nerve injury, allergic reaction, possibleincrease in symptoms over the ensuing 24 to 48 hours, paralysis. Thepatient appeared to understand, questions were answered and the patientagreed to proceed. Standard time-out procedure was performed. Iqra Hickey was greeted by the nurse who verified patients name andDOB. Patient was then taken to the fluoroscopy suite. TECHNIQUE: After informed written consent was obtained the patient wasplaced in the prone position. The lumbar spine spine was prepped withchloraprep and draped. Sterile technique was used ( cap, glove, mask wereworn). Vitals signs were monitored, time out was done and the right sidewas marked with a radioopaque marker. The skin and subcutaneousstructures were anesthetized with lidocaine 1% to a total volume of 5 MLat each level. Under fluoroscopic guidance, in ipsilateral oblique view, co-axialapproach, 22 gauge spinal needle(s) were advanced to the base of theL-3 and L-4. pedicle(s). The needle(s) were advanced to thesuperio-posterior aspect of the neural foramen under lateral view.Oblique and AP views were rechecked. Under AP view Omnipaque 240 1 cc'swas injected while visualized with digital subtraction. There was noevidence of intravascular uptake, the epidural space was delineated.Decadron 5 mg was injected after negative aspiration, at each level,followed by lidocaine 1% 0.25-ML at each level. Outcome: The patient tolerated the procedure well and had stable vitalsigns. The patient noted after getting up after the procedure that theirpain was at a 0 out of 10 level. Preprocedure pain level was a 3 out of10. Follow up plans and appointments were discussed with Iqra Violeta Hickey. Thepatient was observed in the pain clinic and then discharged after havingmet discharge criteria to the care of a truck driver's offsider. The patient receivedwritten instructions as documented in nursing records. COMMENTS: The patient tolerated the procedure well. Follow-up with Gerri Spaulding APRN. CC: GERRI SPAULDING APRN @[email or web address]@ Radha Mccallum MD PROCEDURE/MINOR SURG ICAL ORDERABLES documented in this encounter Visit Diagnoses Diagnosis Right lumbar radiculitis Thoracic or lumbosacral neuritis or radiculitis, unspecified Lumbar stenosis Spinal stenosis, lumbar region, without neurogenic claudication Foraminal stenosis of lumbar region Spinal stenosis, lumbar region, without neurogenic claudication documented in this encounter Administered Medications Inactive Administered Medications - up to 3 most recent administrations Medication Order MAR Action Action Date Dose Rate Site dexamethasone sodium (PF) injection 10 mg 10 mg, Epidural, ONCE, 1 dose, On Fri08/31/13 at 1500, Routine Given 08/31/2013 3:00 PM EDT 10 mg iohexol (OMNIPAQUE) injection 1 mL 1 mL, Epidural, ONCE, 1 dose, On Fri08/31/13 at 1500, Wasted 49 ml, Routine Given 08/31/2013 3:00 PM EDT 1 mL documented in this encounter Care Teams Blast Furnace Supervisor Relationship Specialty Start Date End Date Gerri Spaulding APRN PCP - General 08/31/13 11/27/17 documented as of this encounter
--- OUTSIDE RECORDS SUMMARY | 2024-06-15 21:46 | XMS_ITS | Encounter Summary ---
Author Organization [facility] Address [facility] [place] [address] Care Team Providers Care Cso Name Role Phone None Primary Care Provider Unavailabl e Encounter Details Date Type Department Care Team (Latest Contact Info) Description 11/13/2012 12:30 PM EST Procedure [place] [address] Melanie Fernandez MD [facility] [place] [address] Scoliosis; Spinal stenosis of lumbar region Discharge Disposition: Home [...] Sign Reading Time Taken Comments Blood Pressure 149/88 11/13/2012 1:27 PM EST Pulse 96 11/13/2012 1:27 PM EST Temperature - - Respiratory Rate - - Oxygen Saturation 98% 11/13/2012 1:27 PM EST Inhaled Oxygen Concentration - - Weight - - Height - - Body Mass Index - - documented in this encounter Patient Instructions * Patient Instructions* Chelsie Franco RN - 11/13/2012 1:28 PM EST Pain Management Center Discharge Instructions: You were seen by Dr. Melanie Fernandez MD who performed lumbar epidural steroid injection. [x] You may resume your normal [...] your procedure. You received the following medications: Depo-Medrol 120 mg, Lidocaine and Omnipaque (contrast dye). During regular business hours, please phone the [...] or proceed to your local emergency department. Special instructions: Chelsie Franco RN documented in this encounter Progress Notes * Chelsie Franco RN - 11/13/2012 1:10 PM EST Pre-Procedure Screening Questions: 1. Status: No 2. 3. Patient states they have a recycling collections driver to transport after procedure? Yes 4. Patient [...] documented in this encounter Procedure Notes * Melanie Fernandez MD - 11/13/2012 1:18 PM ESTAssociated Order(s): EPIDURAL STEROID INJECTION Procedure(s): EPIDURAL STEROID INJECTION Pre-Procedure Diagnose(s): Spinal stenosis of lumbar region Lumbar Epidural Steroid Injection Date of Service: 11/13/2012 Patient: Iqra Hickey Provider: MELANIE FERNANDEZ MD Iqra Hickey has been referred to the Pain Management Center for lumbar epidural steroid injection. COMMENTS: Referring provider: Dr Wong Pain location: Right low back pain and anterior lateral leg pain to the calf Pain level: Remains functional Bowel or bladder changes: denies Weakness: denies Numbness: denies Imaging Reviewed Ms. Hickey was interviewed and the medical record reviewed. There were no medical, pharmacologic, radiographic or other structural contraindications to attempting fluoroscopically guided epidural steroid injection. Risks and expected side effects as well as potential benefit of the procedure were rev iewed with Ms. Hickey, and her voiced concerns addressed. The printed consent form was signed and witnessed. Standard time-out procedure was performed. Ms. Hickey was placed in the prone position on the fluoroscopy table and automated blood pressure cuff and pulse oximeter applied. The skin entry point for entering the epidural space by a interlaminar approach at Right L4-5 was identified under fluoroscopy and marked. Following thorough Chlorhexadine preparation of the skin and draping and 1% lidocaine infiltration of the skin entry point and subcutaneous tissues, an 18 gauge Tuohy needle was placed under fluoroscopic guidance and with loss of resistance technique into the epidural space. Upon needle placement and loss of resistance there were no paresthesiae or return of blood or CSF through the needle. 1 ml Omnipaque 240 were injected with clear epidural spread in A/P and lateral. 120 mg of Depomedrol followed by 1 ml sterile normal saline were injected through the needle with no unusual discomfort expressed by Ms. Hickey. Ms. Blancs vital signs were stable throughout the procedure and were as recorded in the docflowsheet by the nursing staff. If given, dosages of intravenous drugs for anxiolysis and analgesia were documented in MAR. Follow up plans and appointments were discussed with the Ms. Hickey. Post procedure instruction was given as documented in nursing documentation and having met discharge criteria, she was discharged from the Pain Management Center. COMMENTS: No apparent complications Repeat prn Follow-up with spine center prn If without benefit consider L3-4 level for injection and/or consider right L3TF or L4TF MELANIE FERNANDEZ MD [facility] [place]: None @PCPADD@ documented in this encounter Miscellaneous Notes * Miscellaneous - Provider, Scanning - 11/17/2012 10:49 AM EST documented in this encounter Plan of Treatment Not on file documented as of this encounter Procedures Procedure Name Priority Date/Time Associated Diagnosis Comments EPIDURAL STEROID INJECTION Routine 11/13/2012 1:36 PM EST Spinal stenosis of lumbar region documented in this encounter Results * EPIDURAL STEROID INJECTION (11/13/2012 1:36 PM EST) Narrative Melanie Fernandez MD - 11/13/2012 1:36 PM EST Melanie Fernandez MD ? 11/13/2012 ??1:36 PM Lumbar Epidural Steroid Injection Date of Service: ??11/13/2012 Patient: ??Iqra Hickey ?? Provider: ??MELANIE FERNANDEZ MD ?? Iqra Hickye has been referred to the Pain Management Center for lumbar epidural steroid injection. ?? COMMENTS: Referring provider: ??Dr Wong Pain location: ??Right low back pain and anterior lateral leg pain to the calf Pain level: ??Remains functional Bowel or bladder changes: denies Weakness: ??denies Numbness: denies Imaging Reviewed Ms. Hickey was interviewed and the medical record reviewed. ??There were no medical, pharmacologic, radiographic or other structural contraindications to attempting fluoroscopically guided epidural steroid injection. ??Risks and expected side effects as well as potential benefit of the procedure were reviewed with Ms. Hickey, and her voiced concerns addressed. ??The printed consent form was signed and witnessed. ??Standard time-out procedure was performed. Ms. Hickey was placed in the prone position on the fluoroscopy table and automated blood pressure cuff and pulse oximeter applied. ??The skin entry point for entering the epidural space by a interlaminar approach at Right L4-5 was identified under fluoroscopy and marked. ?? Following thorough Chlorhexadine preparation of the skin and draping and 1% lidocaine infiltration of the skin entry point and subcutaneous tissues, an 18 gauge Tuohy needle was placed under fluoroscopic guidance and with loss of resistance technique into the epidural space. ??Upon needle placement and loss of resistance there were no paresthesiae or return of blood or CSF through the needle. ?? 1 ml Omnipaque 240 were injected with clear epidural spread in A/P and lateral. ?? 120 mg of Depomedrol followed by 1 ml sterile normal saline were injected through the needle with no unusual discomfort expressed by ??Ms. Hickey. Ms. Hickey's vital signs were stable throughout the procedure and were as recorded in the docflowsheet by the nursing staff. ??If given, dosages of intravenous drugs for anxiolysis and analgesia were documented in MAR. Follow up plans and appointments were discussed with the Ms. Hickey. ??Post procedure instruction was given as documented in nursing documentation and having met discharge criteria, she was discharged from the Pain Management Center. COMMENTS: No apparent complications Repeat prn Follow-up with spine center prn If without benefit consider L3-4 level for injection and/or consider right L3TF or L4TF MELANIE FERNANDEZ MD [facility] [place]: None @PCPADD@ Procedure Note Melanie Fernandez MD - 11/13/2012 1:18 PM EST Lumbar Epidural Steroid Injection Date of Service: 11/13/2012 Patient: Iqra Hickey Provider: MELANIE FERNANDEZ MD Iqra Hickey has been referred to the Pain Management Center for lumbarepidural steroid injection. COMMENTS: Referring provider: Dr Wong Pain location: Right low back pain and anterior lateral leg pain to thecalf Pain level: Remains functional Bowel or bladder changes: denies Weakness: denies Numbness: denies Imaging Reviewed Ms. Hickey was interviewed and the medical record reviewed. There were nomedical, pharmacologic, radiographic or other structural contraindicationsto attempting fluoroscopically guided epidural steroid injection. Risksand expected side effects as well as potential benefit of the procedurewere reviewed with Ms. Hickey, and her voiced concerns addressed. Theprinted consent form was signed and witnessed. Standard time-outprocedure was performed. Ms. Hickey was placed in the prone position on the fluoroscopy table andautomated blood pressure cuff and pulse oximeter applied. The skin entrypoint for entering the epidural space by a interlaminar approach at RightL4-5 was identified under fluoroscopy and marked. Following thorough Chlorhexadine preparation of the skin and draping and1% lidocaine infiltration of the skin entry point and subcutaneoustissues, an 18 gauge Tuohy needle was placed under fluoroscopic guidanceand with loss of resistance technique into the epidural space. Uponneedle placement and loss of resistance there were no paresthesiae orreturn of blood or CSF through the needle. 1 ml Omnipaque 240 were injected with clear epidural spread in A/P andlateral. 120 mg of Depomedrol followed by 1 ml sterile normal saline were injectedthrough the needle with no unusual discomfort expressed by Ms. Hickey. Ms. Hickey's vital signs were stable throughout the procedure and were asrecorded in the docflowsheet by the nursing staff. If given, dosages ofintravenous drugs for anxiolysis and analgesia were documented in MAR. Follow up plans and appointments were discussed with the Ms. Hickey. Postprocedure instruction was given as documented in nursing documentation andhaving met discharge criteria, she was discharged from the [facility]. COMMENTS: No apparent complications Repeat prn Follow-up with spine center prn If without benefit consider L3-4 level for injection and/or consider [id number] or L4TF MELANIE FERNANDEZ MD [facility] [place]: None @PCPADD@ Melanie Fernandez MD NEUROLOGY ORDERA BLES documented in this encounter Visit Diagnoses Diagnosis Scoliosis Scoliosis (and kyphoscoliosis), idiopathic Spinal stenosis of lumbar region Spinal stenosis, lumbar region, without neurogenic claudication documented in this encounter Administered Medications Inactive Administered Medications - up to 3 most recent administrations Medication Order MAR Action Action Date Dose Rate Site iohexol (OMNIPAQUE) injection 1 mL 1 mL, Other, ONCE, 1 dose, On Fri11/13/12 at 1345, 49 ml wasted, Routine Given 11/13/2012 1:45 PM EST 1 mL methylPREDNISolone acetate (depo-MEDROL) injection 120 mg 120 mg, Epidural, ONCE, 1 dose, On Fri11/13/12 at 1345, Routine Given 11/13/2012 1:45 PM EST 120 mg documented in this encounter Care Teams Cso Relationship Specialty Start Date End Date None None PCP - General 10/02/10 08/30/13 documented as of this encounter
--- OUTSIDE RECORDS SUMMARY | 2024-06-15 21:46 | XMS_ITS | Encounter Summary ---
Author Organization [facility] Address [address] [place] [address] Care Team Providers Care Structural Iron Worker Name Role Phone Unavailable Primary Care Provider Unavailabl e Encounter Details Date Type Department Care Team (Late st Contact Info) Description 04/22/2007 Results Only [facility] Family Medicine [address] [address] Hiral Moscoso MD [address] [place] [phone] Social History Tobacco Use Types Packs/Day Years Used Date Smoking Tobacco: Never Assessed Sex and Gender Information Value Date Recorded Sex Assigned at Not on file Gender Identity Not on file Sexual Orientation Not on file documented as of this encounter Plan of Treatment Not on file documented as of this encounter Procedures Procedure Name Priority Date/Time Associated Diagnosis Comments CYTOPATHOLOGY Routine 04/22/2007 0:00 EDT documented in this encounter Results * CYTOPATHOLOGY (04/22/2007 0:00 EDT) Pathology Report: CYTOPATHOLOGY REPORT Reports generated via electronic interface contain original data; however they are lacking the format of the original report. Caution should be taken when reading/interpreti ng unformatted reports. Name: ? Iqra HICKEY ? Accession #: ? [id number] : ? 1940 (Age: 66) ??F ?Collect Date: ? 04/22/2007 Location: ? [facility] ? Receive Date: ? 04/24/2007 Provider: ?HIRAL MOSCOSO MD Copy to: ? Specimen/Source: ?ThinPrep Pap Test, Endocervix, processed on Medrio ThinPrep Imaging System, with manual evaluation Last Menstrual Period: ? Other: ? HPVA - HPV testing requested if ASC-US on the current ThinPrep Pap test. ? SPECIMEN ADEQUACY ? Satisfactory for Evaluation - transformation zone component present GENERAL CATEGORIZATION ? Negative for Intraepithelial Lesion or Malignancy INTERPRETATION ? Shift in heraclio present suggestive of bacterial vaginosis. ? Document reviewed and electronically signed by: ? JOVANI Mark(ASCP) ? Report Date: ??04/29/2007 14:49 End of Report [facility] 04/22/2007 04/24/2007 Hiral Moscoso MD PATHOLOGY ORDERABLES Performing Organization Address City/State/[place] Co de Phone Number [facility] [address] [place] [address] documented in this encounter Visit Diagnoses Not on filedocumented in this encounter
--- OUTSIDE RECORDS SUMMARY | 2024-06-15 21:46 | XMS_ITS | Encounter Summary ---
Author Organization [facility] [place] [address] Care Team Providers Care Construction Rep Name Role Phone Luigi Rodarte Primary Care Provider [phone] Reason for Visit * Reason Comments Follow-up Encounter Details Date Type Department Care Team (Late st Contact Info) Description 12/08/2017 9:00 AM EST Procedure visit Dermatology at [address] [phone] Cisco Miranda MD [address] [facility] [place] [address] Epidermal cyst Social History Tobacco Use Types Packs/Day Years Used Date Smoking Tobacco: Former Cigarettes Smokeless Tobacco: Never Comments:former passive smok er in college Sex and Gender Information Value Date Recorded Sex Assigned at Not on file Gender Identity Not on file Sexual Orientation Not on file documented as of this encounter Progress Notes * Cisco Miranda MD - 12/08/2017 9:00 AM EST Clinical impression: Follicular cyst Site: Left back Size: 2 cm Tissue: 3-0 Vicryl Surface suture: 4-0 Ethilon Follow-up: 10-14 days for suture removal and suture removal and biopsy results Indications for surgery, possible adverse outcomes, and activity restrictions discussed. Informed verbal consent was obtained. Skin surface was prepared with 4% chlorhexidine and draped in the usual sterile manner. Local anesthesia with 1% lidocaine, 100,000 epinephrine and 0.1 mEq/mL bicarbonate. Using a #15 blade, an elliptical excision was carried out over the top of the lesion. Undermining performed peripherally. Hemostasis with elective desiccation. Layered closure performed, with specimen to pathology. Wound dressed, wound care reviewed. End length of excisional line was 2.5 cm Follow-up in 10-14 days for suture removal and biopsy results. Cc: ESTEFANIA Zuniga documented in this encounter Plan of Treatment Not on file documented as of this encounter Visit Diagnoses Diagnosis Epidermal cyst Sebaceous cyst documented in this encounter Care Teams Construction Rep Relationship Specialty Start Date End Date Luigi Rodarte PA [address] [place] [address] PCP - General General Internal Medicine 11/28/1705/14 documented as of this encounter
--- OUTSIDE RECORDS SUMMARY | 2024-06-15 21:46 | XMS_ITS | Encounter Summary ---
Author Organization [facility] [place] [address] Care Team Providers Care Bath Mix Operator Name Role Phone Opal Bray APRN Primary Care Provider [phone] Encounter Details Date Type Department Care Team (Latest Contact Info) Description 07/22/2023 Travel Social History Tobacco Use Types Packs/Day Years [...] on filedocumented in this encounter Care Teams Bath Mix Operator Relationship Specialty Start Date End Date Opal Bray APRN [address] [place] [address] PCP - General Family Medicine 07/22/23 documented as of this encounter
--- OUTSIDE RECORDS SUMMARY | 2024-06-15 21:46 | XMS_ITS | Encounter Summary ---
Author Organization [facility] Address [address] [place] [address] Care Team Providers Care Process Engineer Name Role Phone Unavailable Primary Care Provider Unavailabl e Encounter Details Date Type Department Care Team (Late st Contact Info) Description 07/10/2010 Results Only [facility] Laboratory Services - [facility] [address] [place], [place] [address] Jenni Saldivar, [facility] [address] [place] [phone] Social History Tobacco Use Types Packs/Day Years Used Date Smoking Tobacco: Never Assessed Sex and Gender Information Value Date Recorded Sex Assigned at Not on file Gender Identity Not on file Sexual Orientation Not on file documented as of this encounter Plan of Treatment Not on file documented as of this encounter Procedures Procedure Name Priority Date/Time Associated Diagnosis Comments HPV DETECTION, HIGH RISK TYPES Routine 07/10/2010 10:20 EDT CYTOPATHOLOGY Routine 07/10/2010 0:00 EDT documented in this encounter Results * HUMAN PAPILLOMA VIRUS DNA TEST (07/10/2010 10:20 EDT) Specimen Description Cervix, ThinPrep vial [facility] Result Negative for HPV types 16, 18, 31, 33, 35, 39, 45, 51, 52, 56, 58, 59, and 68. [facility] Report Status Final 07/18/2010 [facility] 07/10/2010 10:2 0 EDT 07/17/2010 10:20 EDT Jenni Saldivar RECYCLING PROGRAM MANAGER MICROBIOLOGY - GENER AL ORDERABLES [facility] [address] [place] [address] * CYTOPATHOLOGY (07/10/2010 0:00 EDT) Pathology Report: CYTOPATHOLOGY REPORT ? Reports generated via electronic interface contain original data; ? however they are lacking the format of the original report. ? Caution should be taken when reading/interpreti ng unformatted reports. ? Name: ? Iqra HICKEY ? Accession #: ? [id number] ? : ? 1940 (Age: 69) ??F ?Collect Date: ? 07/10/2010 ? Location: ? [facility] ? Receive Date: ? 07/11/2010 ? Provider: ?JENNI JENNIFER RECYCLING PROGRAM MANAGER ? Copy to: ? Specimen/Source: ?Pap Test, Cervix/Endocervix, ThinPrep Imaging System ? with manual evaluation ? Last Menstrual Period: ? 1999 ? Other: ? HPVDX - HPV testing requested regardless of diagnosis on current ThinPrep Pap ?? test. ? SPECIMEN ADEQUACY ? Satisfactory for Evaluation ? - transformation zone component present ? GENERAL CATEGORIZATION ? Negative for Intraepithelial Lesion or Malignancy ? Document reviewed and electronically signed by: ? JOVANI Chandler(ASCP) ? Report Date: ??07/13/2010 16:15 ? End of Report ? [facility] 07/10/2010 07/11/2010 Jenni Saldivar RECYCLING PROGRAM MANAGER PATHOLOGY ORDERABLES [facility] [address] [place] [address] documented in this encounter Visit Diagnoses Not on filedocumented in this encounter
--- OUTSIDE RECORDS SUMMARY | 2024-06-15 21:46 | XMS_ITS | Encounter Summary ---
Author Organization [facility] Address [address] [place] [address] Care Team Providers Care Manager Star Name Role Phone Unavailable Primary Care Provider Unavailabl e Encounter Details Date Type Department Care Team (Late st Contact Info) Description 09/09/[address] [facility] Family Medicine [address] [address] Hiral Moscoso MD [address] [place] [phone] Social History Tobacco Use Types Packs/Day Years Used Date Smoking Tobacco: Never Assessed Sex and Gender Information Value Date Recorded Sex Assigned at Not on file Gender Identity Not on file Sexual Orientation Not on file documented as of this encounter Plan of Treatment Not on file documented as of this encounter Procedures Procedure Name Priority Date/Time Associated Diagnosis Comments CYTOPATHOLOGY Routine 09/09/2001 0:00 EST documented in this encounter Results * CYTOPATHOLOGY (09/09/2001 0:00 EST) Pathology Report: CYTOPATHOLOGY REPORT Reports generated via electronic interface contain original data; however they are lacking the format of the original report. Caution should be taken when reading/interpreti ng unformatted reports. Name: ? Iqra HICKEY ? Accession #: ? [id number] : ? 1940 (Age: 60) ??F ?Collect Date: ? 09/09/2001 Location: ? [facility] ? Receive Date: ? 09/11/2001 Provider: ?HIRAL MOSCOSO MD Copy to: ? Specimen/Source: ?ThinPrep Pap Test, Endocervix Last Menstrual Period: ? 2 years ago Other: ? DHPV - HPV testing requested if ASCUS/MARVA on the current ThinPrep Pap test. ? SPECIMEN ADEQUACY ? Satisfactory for evaluation. GENERAL CATEGORIZATION ? Within Normal Limits ? Document reviewed and electronically signed by: ? JOVANI Richard(ASCP) ? Report Date: ??09/16/2001 13:12 End of Report [facility] 09/09/2001 09/11/2001 Hiral Moscoso MD PATHOLOGY ORDERABLES [facility] [address] [place] [address] documented in this encounter Visit Diagnoses Not on filedocumented in this encounter
--- OUTSIDE RECORDS SUMMARY | 2024-06-15 21:46 | XMS_ITS | Encounter Summary ---
Author Organization [facility] Address [address] [place] [address] Care Team Providers Care Clinical Services Specialist Name Role Phone Unavailable Primary Care Provider Unavailabl e Encounter Details Date Type Department Care Team (Latest Contact Info) Description 06/07/2005 10:10 EDT - 06/07/2005 11:59 EDT Hospital Encounter [address] [address] Jeannine De Los Santos MD [address] [facility] [address] [place] [address] Discharge Disposition: Auto Discharge Social History Tobacco Use Types Packs/Day Years Used Date Smoking Tobacco: Never Assessed Sex and Gender Information Value Date Recorded Sex Assigned at Not on file Gender Identity Not on file Sexual Orientation Not on file documented as of this encounter Discharge Disposition Disposition Code Departure Means Destination Auto Discharge documented in this encounter Plan of Treatment Not on file documented as of this encounter Visit Diagnoses Not on filedocumented in this encounter
--- OUTSIDE RECORDS SUMMARY | 2024-06-15 21:46 | XMS_ITS | Encounter Summary ---
Author Organization [facility] Address [address] [place] [address] Care Team Providers Care Web Mobile Designer Name Role Phone Unavailable Primary Care Provider Unavailabl e Encounter Details Date Type Department Care Team (Late st Contact Info) Description 06/07/2005 Office Visit [facility] - [facility] [address], [place] [id number] Jeannine De Los Santos MD [address] [facility] [address] [place] [address] Social History Tobacco Use Types Packs/Day Years Used Date Smoking Tobacco: Never Assessed Sex and Gender Information Value Date Recorded Sex Assigned at Not on file Gender Identity Not on file Sexual Orientation Not on file documented as of this encounter Progress Notes * Jeannine De Los Santos MD - 01/11/2010 0924 EST Care Center - Physician Summary Registration Date/Time: 06/07/2005 10:11 Time Seen: 11:02 Arrived- By private vehicle. Historian- patient. HISTORY OF PRESENT ILLNESS Chief Complaint: WEAKNESS and PARESTHESIA. of face Patient also has some right arm numbness which occurs frequently while driving and also when awakens in the AM This started today and is still present but is improving. (Pulled car over and had BP checked on the way here that was systolic 160. Doesnot see a physician on a regular basis. Like herbal meds. ). She has had numbness involving the right face and left face (comes and goes. Not localized to one side of face.). (Denies chest pain.). Atit's maximum deficit described as mild. She has had dizziness (Took NoDoz today prior to driving which she takes not infrequently.). The patient has had similar symptoms previously (One year ago while driving across country had facial numbness related to taking an herbal med. Was seen at a hospital and was told that her BP was 165systolic. Has not had a BP check since then.). Not recently seen/assessed. REVIEW OF SYSTEMS No fever, head injury, chest pain or difficulty breathing. No headache (Top of head feels funny.). No sore throat (c/o pain in right jaw when opens it. Sister recently went in for surgery for TMJ disease.). PAST HISTORY Negative. See nurses notes. No history of heart disease, hypertension or diabetes mellitus. Medications: See nurses notes. NoDoz, vitamins, herbs Allergies: No known drug allergies. SOCIAL HISTORY Nonsmoker. No alcohol. FAMILY HISTORY Denies CAD, Denies CVA except in elderly grandfather. ADDITIONAL NOTES The nursing notes have been reviewed. PHYSICAL EXAM Appearance: Alert. No acute distress. Vital Signs: The vital signs have been reviewed (BP 148/80 by me). Head: Head atraumatic. Eyes: Pupils equal, round and reactive to light. ENT: Normal ENT inspection. Pharynx normal. Neck: Normal inspection. Neck supple. CVS: Normal heart rate and rhythm. Heart sounds normal. Pulses normal. Respiratory: No respiratory distress. Breath sounds normal. Abdomen: Abdomen soft and nontender. Back: Normal inspection. Skin:Normal skin color. Extremities: Extremities exhibit normal ROM. No pedal edema. Neuro: Alert. Oriented X 3. Mood/affect normal. Speech normal. Cranial nerves normal (as tested). Facial weakness (Patient has an asymmetric smile which she says is normal for her. There is no facialweakness noted.). No cerebellar findings. No motor deficit. No sensory deficit. Sensory deficit present (No tinnel's sign of right wrist). CLINICAL IMPRESSION Carpal tunnel syndrome right wrist. TMJ syndrome. Reaction to medication (NoDoz) with facial numbness INSTRUCTIONS Stop taking NoDoz as we discussed. Your blood pressure was 148/80 today. Goal is lessthan 130/80. See your physician for a BP recheck when you have not taken NoDoz or other stimulants. Follow-up: Follow up with your doctor for general medical checkand BP check. (Electronically signed by Jeannine De Los Santos MD 06/07/2005 11:13) Care Center - Nursing Summary Registration Date/Time: 06/07/2005 10:11 TRIAGE Initial Assessment BP: 150/ 60 HR: 72 RR: 16 Temp: 96.6 Alert. --1033 Nica Harris R.N. Medications (VIT.). --1033 Nica Harris R.N. Allergies No known drug allergies. --1033 Nica Harris R.N. History Chief Complaint: (SUDDEN ONSET OF FACIAL NUMBNESS AT 0930). Pain level now: 0/10. Treatment LINOLEUM PRINTER: (TOOK 2 ASA AT 0930). PAST HX: Negative. Arrived by private vehicle. --1033 Nica Harris R.N. PHYSICAL ASSESSMENT Alert. Oriented X 3. (NOTED LT FACIAL DROOP,HAND GRASP STRONG EQUAL,PUPILS REACT STRONG EQUAL). --1052 Nica Harris R.N. (COMPLAINS ABOUT NUMBNESS IN FACE. ALLOVER STATES SHE ALWAYS HAS HAD A CROCKED SMILE). --1053 Ncia Harris R.N. (PT SPEAKING AND WALKING WELL). --1053 Nica Harris R.N. (fatigued took no doze shortly after felt facial numbness). --1054 Nica Harris R.N. 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 --1056 Nica Harris R.N. NURSING PROGRESS NOTES Progress (M.D. DIRECTLY IN TO SEE PT.). Patient ready for evaluation- notification provided. --1057 Nica Harris R.N. (some nimbness in face remaining ,but improved). --1128 Nica Harris R.N. DISPOSITION / DISCHARGE Condition at departure: improved. No barriers to learning present. Reviewed medication side effects, precautions, dosing and course (ibuprofen). Treatments reviewed. Reviewed referral to family practice. Patient verbalized understanding. Written instructions provided in Urdu. The patient was disc harged home and accompanied by spouse. The patient left the Emergency Department ambulatory and viaprivate vehicle. Spouse driving. --1129 Nica Harris R.N. Locked/Released at 06/07/2005 11:29 by Nica Harris R.N. documented in this encounter Plan of Treatment Not on file documented as of this encounter Visit Diagnoses Not on filedocumented in this encounter
--- OUTSIDE RECORDS SUMMARY | 2024-06-15 21:46 | XMS_ITS | Encounter Summary ---
Author Organization [facility] [place] [address] Care Team Providers Care Steel Construction Worker Name Role Phone Opal Bray APRN Primary Care Provider [phone] Reason for Visit * Reason Comments Skin Check Encounter Details Date Type Department Care Team (Late st Contact Info) Description 07/22/2023 3:45 PM EDT Office Visit Dermatology at [address] [place] [id number] Cisco Miranda MD [address] [facility] [place] [address] Seborrheic keratosis; Sebaceous hyperplasia; AK (actinic keratosis) Social History Tobacco Use Types Packs/Day Years Used Date Smoking Tobacco: Former Cigarettes Smokeless Tobacco: Never Comments:former passive smok er in college Sex and Gender Information Value Date Recorded Sex Assigned at Not on file Gender Identity Not on file Sexual Orientation Not on file documented as of this encounter Progress Notes * Cisco Miranda MD - 07/22/2023 3:45 PM EDT PROBLEM: 1. New skin lesion of concern. 2. 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 3. 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 Lorraine follows up for repeat skin checkup. She has been having a number of health problems of late. She needs to have a cataract replaced in her left eye but surgery was canceled due to tachycardia. She is concerned about skin lesions Physical examination reveals a pleasant 82-year-old woman who has a benign examination of the head and the neck the chest the back the hands on forearms thighs and calves. She has an actinic keratosis on the right nasal sidewall and on the mid nasal bridge. There is no evidence of any malignant lesions. She has significant number of solar lentigo's from sun exposure over the years including in [place]. Assessment plan: Benign skin examination, with [address] 2 x 2 applied to single actinic keratosis on right nasal sidewall and 1 on nasal bridge 2. Return to clinic as needed. History of BCCA's 1. No evidence of recurrence of prior treatment sites 2. Patient reassured about benign sebaceous hyper plasia present on either left and right nasal tip. CC: Opal Bray APRN documented in this encounter Plan of Treatment Not on file documented as of this encounter Visit Diagnoses Diagnosis Seborrheic keratosis Other seborrheic keratosis Sebaceous hyperplasia Other specified disease of sebaceous glands AK (actinic keratosis) Actinic keratosis documented in this encounter Care Teams Steel Construction Worker Relationship Specialty Start Date End Date Opal Bray APRN [address] [place] [address] PCP - General Family Medicine 07/22/23 documented as of this encounter
--- OUTSIDE RECORDS SUMMARY | 2024-06-15 21:46 | XMS_ITS | Encounter Summary ---
Author Organization [facility] Address [address] [place] [id number] Care Team Providers Care Landing Signal Officer Name Role Phone Unavailable Primary Care Provider Unavailabl e Encounter Details Date Type Department Care Team (Latest Contact Info) Description 12/22/2013 9:44 EST - 12/22/2013 23:59 EST Hospital Encounter [address] [address] Unknown, Provider, Discharge Disposition: Home or Self Care Social History Tobacco Use Types Packs/Day Years Used Date Smoking Tobacco: Never Assessed Sex and Gender Information Value Date Recorded Sex Assigned at Not on file Gender Identity Not on file Sexual Orientation Not on file documented as of this encounter Discharge Disposition Disposition Code Departure Means Destination Home or Self Jail documented in this encounter Plan of Treatment Not on file documented as of this encounter Visit Diagnoses Not on filedocumented in this encounter
== END 2024-06-15 21:43 | disposition home or self-care (01) ==
LOC: LBN 21:42
PROVIDERS: PCP Nurse Practitioner Family; Visit Provider Nurse Practitioner Family
DX: R50.9 Fever, unspecified (principal); N30.01 Acute cystitis with hematuria
CPT/HCPCS: 87086